=== PATIENT | male | born 1955 | race Caucasian/White ===

== ENCOUNTER 2024-11-30 11:08 | Emergency (ER) | payer MEDICARE ==
--- NOTE | 2024-11-30 11:30 | ED ---
Weakness HPI - General Chief complaint: Weakness Stated complaint: general weakness Time Seen by Provider: 11/30/24 11:27 Source: patient, EMS, RN notes reviewed, old records reviewed Mode of arrival: EMS Limitations: no limitations - History of Present Illness Initial comments: This is a 68-year-old male to the ER for evaluation of weakness today. Patient states he had some difficulty getting off the floor from his chair which is usually not a problem for him. His called the ambulance due to this weakness. Patient states his weakness improved during ambulance transport, patient has no medical history takes no medications and currently is without complaint MD Complaint: generalized weakness, lack of energy, difficulty walking -: hour(s) Location: generalized Severity: mild Consistency: now resolved Improves with: none Worsens with: none Context: history of similar Associated Symptoms: denies other symptoms - Related Data Home Medications Medication Instructions Recorded Confirmed No Known Home Medications 11/30/24 11/30/24 Allergies Allergy/AdvReac Type Severity Reaction Status Date / Time No Known Allergies Allergy Verified 11/30/24 12:32 Review of Systems ROS Statement: Those systems with pertinent positive or pertinent negative responses have been documented in the HPI. ROS Other: All systems not noted in ROS Statement are negative. Past Medical History Past Medical History: No Reported History Past Surgical History: No Surgical Hx Reported Past Psychological History: No Psychological Hx Reported Smoking Status: Former smoker Past Alcohol Use History: Daily Past Drug Use History: None Reported General Exam - General Exam Comments Initial Comments: No focal neurological deficit Limitations: no limitations General appearance: alert, in no apparent distress Head exam: Present: atraumatic, normocephalic, normal inspection Eye exam: Present: normal appearance, PERRL, EOMI. Absent: scleral icterus, conjunctival injection, periorbital swelling ENT exam: Present: normal exam, mucous membranes moist Neck exam: Present: normal inspection. Absent: tenderness, meningismus, lymphadenopathy Respiratory exam: Present: normal lung sounds bilaterally. Absent: respiratory distress, wheezes, rales, rhonchi, stridor Cardiovascular Exam: Present: regular rate, normal rhythm, normal heart sounds. Absent: systolic murmur, diastolic murmur, rubs, gallop, clicks GI/Abdominal exam: Present: soft, normal bowel sounds. Absent: distended, tenderness, guarding, rebound, rigid Extremities exam: Present: normal inspection, full ROM, normal capillary refill. Absent: tenderness, pedal edema, joint swelling, calf tenderness Back exam: Present: normal inspection Neurological exam: Present: alert, oriented X3, CN II-XII intact Psychiatric exam: Present: normal affect, normal mood Skin exam: Present: warm, dry, intact, normal color. Absent: rash Course Vital Signs 11/30/24 11/30/24 11:11 11:36 Temperature 96.5 F L Pulse Rate 91 Pulse Rate [ 80 Bilateral] Respiratory 20 Rate Blood Pressure 170/69 O2 Sat by Pulse 71 L Oximetry - Reevaluation(s) Reevaluation #1: 11/30/24 12:43 Medical records reviewed Reevaluation #2: 11/30/24 12:44 Patient symptoms are improved Initial pulse ox was low but patient has no shortness of breath and is not requiring supplemental O2 99% on room air Patient is able to ambulate without difficulty Reevaluation #3: 11/30/24 12:44 Patient informed of results questions answered Reevaluation #4: Was pt. sent in by a medical professional or institution (, PA, OCULARIST, urgent care, hospital, or senior care...) When possible be specific @ -no Did you speak to anyone other than the patient for history (EMS, parent, family, police, friend...)? What history was obtained from this source @ -no Did you review nursing and triage notes (agree or disagree)? Why? @ -agree Are old charts reviewed (outside hosp., previous admission, EMS record, old EKG, old radiological studies, urgent care reports/EKG's, senior care records)? Report findings @ -yes Differential Diagnosis (chest pain, altered mental status, abdominal pain women, abdominal pain men, vaginal bleeding, weakness, fever, dyspnea, syncope, headache, dizziness, GI bleed, back pain, seizure, CVA, palpatations, mental health, musculoskeletal)? @ -prior EKG interpreted by me (3pts min.). @ -yes X-rays interpreted by me (1pt min.). @ -yes negative for acute disease CT interpreted by me (1pt min.). @ -no U/S interpreted by me (1pt. min.). @ -no What testing was considered but not performed or refused? (CT, X-rays, U/S, labs)? Why? @ -none What meds were considered but not given or refused? Why? @ -none Did you discuss the management of the patient with other professionals (professionals i.e. , PA, OCULARIST, lab, RT, psych nurse, social services director, renal nurse, teacher, sba business development officer, oil field caser)? Give summary @ -no Was smoking cessation discussed for >3mins.? @ -no Was critical care preformed (if so, how long)? @ -no Were there social determinants of health that impacted care today? How? (Homelessness, low income, unemployed, alcoholism, drug addiction, tr ansportation, low edu. Level, literacy, decrease access to med. care, care home, rehab)? @ -none Was there de-escalation of care discussed even if they declined (Discuss DNR or withdrawal of care, Hospice)? DNR status @ -no What co-morbidities impacted this encounter? (DM, HTN, Smoking, COPD, CAD, Canc er, CVA, ARF, Chemo, Hep., AIDS, mental health diagnosis, sleep apnea, morbid obesity)? @ -none Was patient admitted / discharged? Hospital course, mention meds given and route, prescriptions, significant lab abnormalities, going to OR and other pertinent info. @ - Undiagnosed new problem with uncertain prognosis? @ -no Drug Therapy requiring intensive monitoring for toxicity (Heparin, Nitro, Insulin, Cardizem)? @ -no Were any procedures done? @ -no Diagnosis/symptom? @ - Acute, or Chronic, or Acute on Chronic? @ -Acute Uncomplicated (without systemic symptoms) or Complicated (systemic symptoms)? @ -Complicated Side effects of treatment? @ -no Exacerbation, Progression, or Severe Exacerbation? @ -exacerbation Poses a threat to life or bodily function? How? (Chest pain, USA, ME, pneumonia, PE, COPD, DKA, ARF, appy, cholecystitis, CVA, Diverticulitis, Homicidal, Suicidal, threat to staff... and all critical care pts) @ -yes Reevaluation #5: Differential Weakness: Hypoglycemia, shock, sepsis, hyponatremia, anemia, infection, ME, ETOH, adverse medicine reaction, overdose, stroke, this is not meant to be an all-inclusive list. EKG Findings - EKG Comments: EKG Findings:: EKG is sinus 74 CO 151 QRS 85 QTc 377 - EKG Results: EKG: interpreted by BONY Medical Decision Making - Medical Decision Making 68 male to the ER for evaluation of dizziness weakness, patient does have history of alcohol use, no other medical history takes no medications patient's weakness has resolved here in the ER he feels well able to ambulate without difficulty electrolytes are normal and patient can be discharged home - Lab Data Result diagrams: 11/30/24 12:01 11/30/24 12:01 Lab Results 11/30/24 11/30/24 11/30/24 Range/Units 12:01 12:01 12:01 WBC 14.2 H (3.8-10.6) k/uL RBC 4.69 (4.30-5.90) m/uL Hgb 12.8 L (13.0-17.5) gm/dL Hct 41.3 (39.0-53.0) % MCV 88.0 (80.0-100.0) fL MCH 27.3 (25.0-35.0) pg MCHC 31.0 (31.0-37.0) g/dL RDW 13.6 (11.5-15.5) % Plt Count 356 (150-450) k/uL MPV 7.1 Neutrophils % 86 % Lymphocytes % 6 % Monocytes % 5 % Eosinophils % 2 % Basophils % 0 % Neutrophils # 12.3 H (1.3-7.7) k/uL Lymphocytes # 0.9 L (1.0-4.8) k/uL Monocytes # 0.7 (0-1.0) k/uL Eosinophils # 0.3 (0-0.7) k/uL Basophils # 0.1 (0-0.2) k/uL Sodium 133 L (137-145) mmol/L Potassium 4.9 (3.5-5.1) mmol/L Chloride 95 L (98-107) mmol/L Carbon Dioxide 25 (22-30) mmol/L Anion Gap 13 mmol/L BUN 13 (9-20) mg/dL Creatinine 0.69 (0.66-1.25) mg/dL Est GFR (CKD-EPI)AfAm >90 (>60 ml/min/1.73 sqM) Est GFR (CKD-EPI)NonAf >90 (>60 ml/min/1.73 sqM) Glucose 193 H (74-99) mg/dL Plasma Lactic Acid Nicola 3.7 H* (0.7-2.0) mmol/L Calcium 9.7 (8.4-10.2) mg/dL Phosphorus 3.6 (2.5-4.5) mg/dL Magnesium 2.3 (1.6-2.3) mg/dL Total Bilirubin 0.4 (0.2-1.3) mg/dL AST 19 (17-59) U/L ALT 22 (4-49) U/L Alkaline Phosphatase 90 (38-126) U/L Troponin I (0.000-0.034) ng/mL NT-Pro-B Natriuret Pep 110 pg/mL Total Protein 6.8 (6.3-8.2) g/dL Albumin 4.0 (3.5-5.0) g/dL Serum Alcohol <10 mg/dL 11/30/24 Range/Units 12:01 WBC (3.8-10.6) k/uL RBC (4.30-5.90) m/uL Hgb (13.0-17.5) gm/dL Hct (39.0-53.0) % MCV (80.0-100.0) fL MCH (25.0-35.0) pg MCHC (31.0-37.0) g/dL RDW (11.5-15.5) % Plt Count (150-450) k/uL MPV Neutrophils % % Lymphocytes % % Monocytes % % Eosinophils % % Basophils % % Neutrophils # (1.3-7.7) k/uL Lymphocytes # (1.0-4.8) k/uL Monocytes # (0-1.0) k/uL Eosinophils # (0-0.7) k/uL Basophils # (0-0.2) k/uL Sodium (137-145) mmol/L Potassium (3.5-5.1) mmol/L Chloride (98-107) mmol/L Carbon Dioxide (22-30) mmol/L Anion Gap mmol/L BUN (9-20) mg/dL Creatinine (0.66-1.25) mg/dL Est GFR (CKD-EPI)AfAm (>60 ml/min/1.73 sqM) Est GFR (CKD-EPI)NonAf (>60 ml/min/1.73 sqM) Glucose (74-99) mg/dL Plasma Lactic Acid Nicola (0.7-2.0) mmol/L Calcium (8.4-10.2) mg/dL Phosphorus (2.5-4.5) mg/dL Magnesium (1.6-2.3) mg/dL Total Bilirubin (0.2-1.3) mg/dL AST (17-59) U/L ALT (4-49) U/L Alkaline Phosphatase (38-126) U/L Troponin I <0.012 (0.000-0.034) ng/mL NT-Pro-B Natriuret Pep pg/mL Total Protein (6.3-8.2) g/dL Albumin (3.5-5.0) g/dL Serum Alcohol mg/dL Disposition Clinical Impression: Weakness Disposition: HOME SELF-CARE Condition: Good Instructions (If sedation given, give patient instructions): Weakness (ED) Is patient prescribed a controlled substance at d/c from ED?: No Referrals: None,Stated [Primary Care Provider] - 1-2 days Time of Disposition: 12:45
[2024-11-30 12:15] LABS: Basophils # (A) 0.1 k/uL (0-0.2); Basophils % (A) 0 %; Eosinophils # (A) 0.3 k/uL (0-0.7); Eosinophils % (A) 2 %; HCT 41.3 % (39.0-53.0); HGB 12.8 gm/dL (13.0-17.5); Lymphocytes # (A) 0.9 k/uL (1.0-4.8); Lymphocytes % (A) 6 %; MCH 27.3 pg (25.0-35.0); Mean Platelet Volume 7.1; Monocytes # (A) 0.7 k/uL (0-1.0); Monocytes % (A) 5 %; Neutrophils # (A) 12.3 k/uL (1.3-7.7); Neutrophils % (A) 86 %; Platelet Count 356 k/uL (150-450); RBC 4.69 m/uL (4.30-5.90); RDW 13.6 % (11.5-15.5); WBC 14.2 k/uL (3.8-10.6)
[2024-11-30 12:24] LABS: ALT 22 U/L (4-49); AST 19 U/L (17-59); African American GFR (CKD) >90 (>60 ml/min/1.73 sqM); Alcohol <10 mg/dL; Alkaline Phosphatase 90 U/L (38-126); Anion Gap 13 mmol/L; Blood Urea Nitrogen 13 mg/dL (9-20); Calcium 9.7 mg/dL (8.4-10.2); Carbon Dioxide 25 mmol/L (22-30); Chloride 95 mmol/L (98-107); Glucose 193 mg/dL (74-99); Magnesium 2.3 mg/dL (1.6-2.3); Non-African American GFR(CKD) >90 (>60 ml/min/1.73 sqM); Phosphorus 3.6 mg/dL (2.5-4.5); Potassium 4.9 mmol/L (3.5-5.1); Sodium 133 mmol/L (137-145); Total Bilirubin 0.4 mg/dL (0.2-1.3); Total Protein 6.8 g/dL (6.3-8.2)
[2024-11-30 12:32] LABS: NT-Pro-B-Type Natriuretic Pept 110 pg/mL
[2024-11-30] MEDS: LORazepam 2 MG/ML INJ IV STA (12:43)
[2024-11-30] MEDS: SODIUM CHLORIDE 0.9% 1,000 ML IV STA ×2 (12:47→13:15)
[2024-11-30 12:52] LABS: Partial Thromboplastin Time 20.1 sec (22.0-30.0)
[2024-11-30 14:30] VITALS: BP 170/84; PULSE 68; RESP 18; TEMP 97.8
== END 2024-11-30 14:43 | disposition home or self-care (01) ==
LOC: EC 11:08
DX: R53.1 Weakness (principal); Z87.891 Personal history of nicotine dependence
CPT/HCPCS: 36415; 93005; 83880; 80053; 83605; 83735; 84100; 84484; 85025; 85610; 85730; 80320; 99285; 96374; 96361; J2060

== ENCOUNTER → 2024-12-12 | Outpatient (CLI) | payer BC, MEDICARE ==
--- NOTE | 2024-12-12 14:41 | US ---
EXAMINATION TYPE: US arterial LE multi level DATE OF EXAM: 12/12/2024 2:25 PM COMPARISONS: None. CLINICAL INDICATION: Male, 68 years old with history of R53.1 WEAKNESS; LE Weakness/Falls TECHNIQUE: Systolic pressures were taken of the upper and lower extremity arteries with ankle-brachia l indices and toe brachial indices calculated bilaterally. History of: Smoker: Yes Hypertension: Yes Diabetic: No Hyperlipidemia: No TIA/CVA: No Previous Vascular Surgery: No CAD: No UT: No Vascular Ulcers: No Claudication: No Gangrene: No FINDINGS: Doppler Waveforms: Right: Monophasic Left: Monophasic Brachial Artery systolic pressure: Right: 172 Left: 170 Posterior Tibial artery systolic pressure: Right: 51 Left: 53 Dorsalis Pedis artery systolic pressure: Right: 55 Left: 50 Toe artery systolic pressure: Right: NA Left: NA Ankle-Brachial Indices: Right: 0.32 Left: 0.31 Toe Brachial Indices: Right: NA Left: NA (Normal > 0.6; Mild 0.35 - 0.59, Moderate 0.12 - 0.34, Severe <0.12) IMPRESSION: DEMI: Right: Severe Arterial Disease <0.5, Recommendation: Refer to vascular specialist Left: Severe Arterial Disease <0.5, Recommendation: Refer to vascular specialist [facility], , 12/12/2024 2:38 PM
== END | disposition home or self-care (01) ==
LOC: RADUSWWP 13:44
PROVIDERS: ATTEND Family Medicine
DX: I77.9 Disorder of arteries and arterioles, unspecified (principal); R53.1 Weakness
CPT/HCPCS: 93923

== ENCOUNTER 2024-12-21 05:13 | Inpatient (IN) | payer MEDICARE ==
[2024-12-21] MEDS: SODIUM CHLORIDE 0.9% 1,000 ML IV ONE (06:23)
[2024-12-21 06:26] LABS: Basophils % (A) 0 %; Eosinophils # (A) 0.5 k/uL (0-0.7); Eosinophils % (A) 4 %; HCT 36.7 % (39.0-53.0); HGB 12.1 gm/dL (13.0-17.5); Lymphocytes # (A) 0.9 k/uL (1.0-4.8); Lymphocytes % (A) 8 %; MCH 27.5 pg (25.0-35.0); MCV 83.4 fL (80.0-100.0); Mean Platelet Volume 7.4; Monocytes # (A) 0.6 k/uL (0-1.0); Monocytes % (A) 6 %; Neutrophils % (A) 81 %; Platelet Count 437 k/uL (150-450); RDW 13.4 % (11.5-15.5); WBC 11.2 k/uL (3.8-10.6)
[2024-12-21 06:32] LABS: ALT 19 U/L (4-49); AST 18 U/L (17-59); African American GFR (CKD) >90 (>60 ml/min/1.73 sqM); Albumin 3.4 g/dL (3.5-5.0); Alcohol <10 mg/dL; Alkaline Phosphatase 71 U/L (38-126); Anion Gap 9 mmol/L; Blood Urea Nitrogen 16 mg/dL (9-20); Calcium 9.2 mg/dL (8.4-10.2); Carbon Dioxide 27 mmol/L (22-30); Chloride 100 mmol/L (98-107); Glucose 116 mg/dL (74-99); Magnesium 2.1 mg/dL (1.6-2.3); Non-African American GFR(CKD) >90 (>60 ml/min/1.73 sqM); Phosphorus 3.6 mg/dL (2.5-4.5); Potassium 4.3 mmol/L (3.5-5.1); Sodium 136 mmol/L (137-145); Total Bilirubin 0.4 mg/dL (0.2-1.3); Total Protein 6.2 g/dL (6.3-8.2)
[2024-12-21 06:57] LABS: Influenza A Not Detected (Not Detectd); Influenza B Not Detected (Not Detectd); RSV Not Detected (Not Detectd)
--- NOTE | 2024-12-21 07:30 | XR ---
EXAMINATION TYPE: XR chest 2V DATE OF EXAM: 12/21/2024 6:59 AM COMPARISON: None CLINICAL INDICATION: Male, 68 years old with history of Weakness TECHNIQUE: XR chest 2V Frontal and lateral views of the chest. FINDINGS: Lungs/Pleura: There is no evidence of pleural effusion, focal consolidation, or pneumothorax. Pulmonary vascularity: Unremarkable. Heart/mediastinum: Cardiomediastinal silhouette is unremarkable. Right perihilar fullness of masslike opacity present which could possibly be the vasculature given patient rotation. Musculoskeletal: No acute osseous pathology. Other findings: Non IMPRESSION: Right perihilar fullness however the exam is rotated which may represent vasculature versus mass, fur ther evaluation with CT chest recommended to exclude underlying mass. [facility], , 12/21/2024 7:28 AM
--- NOTE | 2024-12-21 07:39 | CT ---
EXAMINATION TYPE: CT brain cspine wo con DATE OF EXAM: 12/21/2024 6:59 AM COMPARISON: None. CLINICAL INDICATION: Male, 68 years old with history of pain; frequent falls recently, pain TECHNIQUE: Brain: Multiple axial CT images of the brain were obtained without IV contrast. Cspine: Axial CT images from the skull base to the inferior aspect of T2 we obtained without intraven ous contrast. Coronal and sagittal reformatted images were also reviewed. . CT DLP: 1390.6 mGycm, Automated exposure control for dose reduction was used. FINDINGS: Brain: Extra-axial spaces: No abnormal extra-axial fluid collections. Ventricular system: Within normal limits Cerebral parenchyma: Intra-axial mass in the right frontal lobe with vasogenic edema measuring 25 at 20 mm. Additional focus of vasogenic edema in the r posterior left frontal lobe suggesting another ma ss measuring 11 mm No acute intraparenchymal hemorrhage. The dale-white junction is well differentia glenn. Cerebellum: Unremarkable. Mass effectleftward shift of the falx up to 11 mm. Intracranial vasculature: unremarkable Soft tissues: Normal. Calvarium/osseous structures: No depressed skull fracture. Paranasal sinuses and mastoid air cells: Clear. Visualized orbits: Orbital contents are intact. Cervical spine: Fracture: None. Osseous structures: Unremarkable Vertebral alignment: Within normal limits. Spinal canal/Neural Foramina: No evidence of significant spinal canal narrowing. No evidence for sign ificant neural foraminal stenosis. Neck soft tissues: Prevertebral soft tissues are within normal limits. Other: The airway is patent. The lung apices are clear. IMPRESSION: 1. Intra-axial masses, given signs of mass on chest radiograph findings suggest metastatic disease o r primary lung malignancy. CT chest recommended for confirmation of primary malignancy. There is left dominguez shift subfalcine herniation secondary to vasogenic edema up to 11 mm. 2. No evidence of cervical spine fracture. 3. Mild multilevel degenerative disc disease. Findings communicated to SOCRATES Fernandez on 12/21/2024 7:[address] Noe Jackson. [facility], , 12/21/2024 7:36 AM
[2024-12-21] MEDS: levETIRAcetam IV 500 MG/5 ML VIAL IVP STA (08:17)
[2024-12-21] MEDS: DEXAMETHASONE SOD PHOSPHATE 10 MG/ML 1 ML VIAL IVP STA (08:18)
--- NOTE | 2024-12-21 08:21 | ED ---
Fall HPI - General Chief Complaint: Fall Stated Complaint: Weakness Time Seen by Provider: 12/21/24 05:59 Source: patient, family, EMS, RN notes reviewed Mode of arrival: EMS Limitations: altered mental status, physical limitation - History of Present Illness Initial Comments: This is a 68-year-old male presents emergency department via EMS with complaint of multiple falls. Patient presents after called EMS because he has had multiple falls unable to get him off the floor. Patient unsure if he had a head injury no reports per EMS. Patient reportedly has been having creasing weakness of the last several weeks to months per he has been having left-sided weakness, cognitive impairment. Patient has no complaints himself he denies any headache dizziness chest pain shortness of breath nausea vomiting diarrhea fever chills cough or cold-like symptoms. Patient is a former alcoholic septic in 2 weeks ago no definite withdrawal symptoms. Patient denies any abdominal complaints but he stated that he recently started seeing a primary physician who did some outpatient venous Dopplers skin concerning for peripheral vascular disease and has been referred to vascular surgery because of his leg weakness and falls. - Related Data Home Medications Medication Instructions Recorded Confirmed No Known Home Medications 11/30/24 12/21/24 Allergies Allergy/AdvReac Type Severity Reaction Status Date / Time No Known Allergies Allergy Verified 12/21/24 10:05 Review of Systems ROS Statement: Those systems with pertinent positive or pertinent negative responses have been documented in the HPI. ROS Other: All systems not noted in ROS Statement are negative. Past Medical History Past Medical History: No Reported History Past Surgical History: No Surgical Hx Reported Past Psychological History: No Psychological Hx Reported Smoking Status: Former smoker Past Alcohol Use History: Daily Past Drug Use History: None Reported - Past Family History Father Family Medical History: Cancer (esophageal ) General Exam Limitations: altered mental status, physical limitation General appearance: alert, in no apparent distress Head exam: Present: atraumatic, normocephalic, normal inspection Eye exam: Present: normal appearance, PERRL, EOMI. Absent: scleral icterus, con junctival injection, periorbital swelling ENT exam: Present: normal exam, normal oropharynx, mucous membranes moist, TM's normal bilaterally Neck exam: Present: normal inspection, full ROM. Absent: tenderness, meningismus, lymphadenopathy Respiratory exam: Present: normal lung sounds bilaterally. Absent: respiratory distress, wheezes, rales, rhonchi, stridor Cardiovascular Exam: Present: regular rate, normal rhythm, normal heart sounds. Absent: systolic murmur, diastolic murmur, rubs, gallop, clicks GI/Abdominal exam: Present: soft, normal bowel sounds. Absent: distended, tenderness, guarding, rebound, rigid Neurological exam: Present: alert, CN II-XII intact, other (Left versus right strength weakness). Absent: oriented X3 Psychiatric exam: Present: flat affect Skin exam: Present: warm, dry, intact, normal color. Absent: rash Course Vital Signs 12/21/24 12/21/24 12/21/24 05:14 08:50 10:13 Temperature 98.2 F 97.5 F L Pulse Rate 76 70 68 Respiratory 18 18 18 Rate Blood Pressure 161/68 151/81 173/79 O2 Sat by Pulse 97 93 L 98 Oximetry Medical Decision Making - Medical Decision Making Was pt. sent in by a medical professional or institution (, PA, [employer] D[employer]ION[employer] MAP MODELER, urgent care, hospital, or usp...) When possible be specific @ -No Did you speak to anyone other than the patient for history (EMS, parent, family, police, friend...)? What history was obtained from this source @ - providing history and complaint Did you review nursing and triage notes (agree or disagree)? Why? @ -I reviewed and agree with nursing and triage notes Were old charts reviewed (outside hosp., previous admission, EMS record, old EKG, old radiological studies, urgent care reports/EKG's, usp records)? Report findings @ -No old charts were reviewed Differential Diagnosis (chest pain, altered mental status, abdominal pain women, abdominal pain men, vaginal bleeding, weakness, fever, dyspnea, syncope, headache, dizziness, GI bleed, back pain, seizure, CVA, palpatations, mental health, musculoskeletal)? @ -Differential Weakness: Hypoglycemia, shock, sepsis, hyponatremia, anemia, infection, [place], ETOH, adverse medicine reaction, overdose, stroke, this is not meant to be an all-inclusive list. EKG interpreted by me (3pts min.). @ -As above X-rays interpreted by me (1pt min.). @ -[Chest x-ray shows right large perihilar mass CT interpreted by me (1pt min.). @ -CT brain showing vasogenic edema, mass noted with some shifting noted U/S interpreted by me (1pt. min.). @ -None done What testing was considered but not performed or refused? (CT, X-rays, U/S, l abs)? Why? @ -None What meds were considered but not given or refused? Why? @ -None Did you discuss the management of the patient with other professionals (professionals i.e. , PA, [employer] D[employer] MODELER, lab, RT, psych nurse, social organization professor, web ui designer, teacher, diplomatic officer, case assembler)? Give summary @ -Discussed admission with Dr. Gonzales and oncology evaluation Was smoking cessation discussed for >3mins.? @ -No Was critical care preformed (if so, how long)? @ -No Were there social determinants of health that impacted care today? How? (Homelessness, low income, unemployed, alcoholism, drug addiction, transpor tation, low edu. Level, literacy, decrease access to med. care, penitentiary, rehab)? @ -No Was there de-escalation of care discussed even if they declined (Discuss DNR or withdrawal of care, Hospice)? DNR status @ -No What co-morbidities impacted this encounter? (DM, HTN, Smoking, COPD, CAD, Cancer, CVA, ARF, Chemo, Hep., AIDS, mental health diagnosis, sleep apnea, morbid obesity)? @ -None Was patient admitted / discharged? Hospital course, mention meds given and route, prescriptions, significant lab abnormalities, going to OR and other pertinent info. @ -[Admitted the patient is found to have increasing metastatic disease, multiple falls, weakness left-sided deficits and cognitive impairment. Patient symptoms been progressing over the last several weeks to months. Patient is unable to care for himself at home. Patient be admitted for oncology evaluation patient's making decisions with patient states that he is currently full code but she does not want any surgical intervention. Undiagnosed new problem with uncertain prognosis? @ -Yes Drug Therapy requiring intensive monitoring for toxicity (Heparin, Nitro, Insulin, Cardizem)? @ -No Were any procedures done? @ -No Diagnosis/symptom? @ -Metastatic disease, weakness, brain mass, lung mass, w multiple falls Acute, or Chronic, or Acute on Chronic? @ -[Acute Uncomplicated (without systemic symptoms) or Complicated (systemic symptoms)? @ -Complicated Side effects of treatment? @ -No Exacerbation, Progression, or Severe Exacerbation? @ -No Poses a threat to life or bodily function? How? (Chest pain, [place], [place], pneumonia, PE, COPD, DKA, ARF, appy, cholecystitis, CVA, Diverticulitis, Homicidal, Suicidal, threat to staff... and all critical care pts) @ Yes cancer - Lab Data Result diagrams: 12/21/24 06:12 12/21/24 06:12 Lab Results 12/21/24 12/21/24 12/21/24 Range/Units 06:12 06:12 06:12 WBC 11.2 H (3.8-10.6) k/uL RBC 4.40 (4.30-5.90) m/uL Hgb 12.1 L (13.0-17.5) gm/dL Hct 36.7 L (39.0-53.0) % MCV 83.4 (80.0-100.0) fL MCH 27.5 (25.0-35.0) pg MCHC 33.0 (31.0-37.0) g/dL RDW 13.4 (11.5-15.5) % Plt Count 437 (150-450) k/uL MPV 7.4 Neutrophils % 81 % Lymphocytes % 8 % Monocytes % 6 % Eosinophils % 4 % Basophils % 0 % Neutrophils # 9.0 H (1.3-7.7) k/uL Lymphocytes # 0.9 L (1.0-4.8) k/uL Monocytes # 0.6 (0-1.0) k/uL Eosinophils # 0.5 (0-0.7) k/uL Basophils # 0.0 (0-0.2) k/uL Sodium 136 L (137-145) mmol/L Potassium 4.3 (3.5-5.1) mmol/L Chloride 100 (98-107) mmol/L Carbon Dioxide 27 (22-30) mmol/L Anion Gap 9 mmol/L BUN 16 (9-20) mg/dL Creatinine 0.53 L (0.66-1.25) mg/dL Est GFR (CKD-EPI)AfAm >90 (>60 ml/min/1.73 sqM) Est GFR (CKD-EPI)NonAf >90 (>60 ml/min/1.73 sqM) Glucose 116 H (74-99) mg/dL Plasma Lactic Acid Nicola 1.7 (0.7-2.0) mmol/L Calcium 9.2 (8.4-10.2) mg/dL Phosphorus 3.6 (2.5-4.5) mg/dL Magnesium 2.1 (1.6-2.3) mg/dL Total Bilirubin 0.4 (0.2-1.3) mg/dL AST 18 (17-59) U/L ALT 19 (4-49) U/L Alkaline Phosphatase 71 (38-126) U/L Troponin I (0.000-0.034) ng/mL Total Protein 6.2 L (6.3-8.2) g/dL Albumin 3.4 L (3.5-5.0) g/dL Serum Alcohol <10 mg/dL Influenza Type A (PCR) (Not Detectd) Influenza Type B (PCR) (Not Detectd) RSV (PCR) (Not Detectd) SARS-CoV-2 (PCR) (Not Detectd) 12/21/24 12/21/24 Range/Units 06:12 06:15 WBC (3.8-10.6) k/uL RBC (4.30-5.90) m/uL Hgb (13.0-17.5) gm/dL Hct (39.0-53.0) % MCV (80.0-100.0) fL MCH (25.0-35.0) pg MCHC (31.0-37.0) g/dL RDW (11.5-15.5) % Plt Count (150-450) k/uL MPV Neutrophils % % Lymphocytes % % Monocytes % % Eosinophils % % Basophils % % Neutrophils # (1.3-7.7) k/uL Lymphocytes # (1.0-4.8) k/uL Monocytes # (0-1.0) k/uL Eosinophils # (0-0.7) k/uL Basophils # (0-0.2) k/uL Sodium (137-145) mmol/L Potassium (3.5-5.1) mmol/L Chloride (98-107) mmol/L Carbon Dioxide (22-30) mmol/L Anion Gap mmol/L BUN (9-20) mg/dL Creatinine (0.66-1.25) mg/dL Est GFR (CKD-EPI)AfAm (>60 ml/min/1.73 sqM) Est GFR (CKD-EPI)NonAf (>60 ml/min/1.73 sqM) Glucose (74-99) mg/dL Plasma Lactic Acid Nicola (0.7-2.0) mmol/L Calcium (8.4-10.2) mg/dL Phosphorus (2.5-4.5) mg/dL Magnesium (1.6-2.3) mg/dL Total Bilirubin (0.2-1.3) mg/dL AST (17-59) U/L ALT (4-49) U/L Alkaline Phosphatase (38-126) U/L Troponin I <0.012 (0.000-0.034) ng/mL Total Protein (6.3-8.2) g/dL Albumin (3.5-5.0) g/dL Serum Alcohol mg/dL Influenza Type A (PCR) Not Detected (Not Detectd) Influenza Type B (PCR) Not Detected (Not Detectd) RSV (PCR) Not Detected (Not Detectd) SARS-CoV-2 (PCR) Not Detected (Not Detectd) - EKG Data -: EKG Interpreted by Me EKG Comments: EKG performed at 5: 33 sinus rhythm rate of 67 MS 152 QRS 86 QT/QTc 369/384 Disposition Clinical Impression: Weakness, Multiple falls, Metastatic cancer, Brain mass, Lung mass Disposition: ADMITTED IP TO THIS [facility] Condition: Serious Time of Disposition: 09:23
[2024-12-21] MEDS ORDERED: NALOXONE 0.4 MG/ML 1 ML VIAL IV PRN (09:23)
[2024-12-21] MEDS ORDERED: ONDANSETRON 4 MG/2 ML VIAL IVP PRN (09:23)
--- NOTE | 2024-12-21 11:20 | P.HPIM ---
History of Present Illness H&P Date: 12/21/24 History of Presenting Illness: Patient is a pleasant 68-year-old male with a past medical history of alcohol abuse and nicotine dependence. He presented to the emergency department with a chief complaint of recurrent falls at home. Per report from ED provider patient has had recurrent falls over the last several weeks to months accompanied by left-sided weakness and intermittent confusion. He underwent recent admission at [facility] secondary to alcohol withdrawal symptoms and has reportedly not drink since. Upon arrival to our facility, patient underwent evaluation in the emergency department. Vital signs upon arrival show blood pressure 161/68, heart rate 76, respiratory rate 18, temp 98.2 F, and SpO2 of 97% on room air. EKG completed showing normal sinus rhythm at 67 bpm with no significant T wave or ST abnormality showing no signs of acute ischemia upon personal review and interpretation. CT head and cervical spine showing intra-axial masses suggestive of metastatic disease with a leftward shift subfalcine herniation secondary to vasogenic edema up to 11 mm and no evidence of cervical spine fracture. Chest x-ray showing right perihilar fullness concerning for mass. ED provider had long discussion with patient's , she was adamant she did not want patient transferred and did not evaluation by neurosurgeon. She states she will not consent to any surgical intervention but at this time wants her to remain a full code with medical management and evaluation by oncologist. Patient seen and fully evaluated in room 16 in the emergency department. He currently is alert to person, place, and time and slightly confused to situation. Patient currently denies having any complaints including headache, lightheadedness, dizziness, chest pain, palpitations, shortness of breath, or any other complaints. Patient does have noted slight left-sided weakness and right pupil is slightly larger than left unknown baseline and both reactive to light. Extraocular movements intact throughout right peripheral thomas but patient did not follow any movements through left peripheral thomas. Review of systems: Pertinent positives and negatives as discussed in HPI, a complete review of systems was performed and all other systems are negative. Physical exam: Vital signs reviewed and stable. General: Nontoxic, no distress and appears stated age. Derm: Skin warm and dry, normal coloration for ethnicity. Head: Atraumatic, normocephalic and symmetric. Eyes: no lid lag, and anicteric sclera Mouth: no lip lesions, mucus membranes moist Cardiovascular: regular rate and rhythm with normal S1S2, no murmur, positive posterior tibial pulses bilaterally, and cap refill < 2 seconds. Lungs: Respirations even, regular, and unlabored on room air. Lungs CTA bilaterally, no rhonchi, no rales, no wheezing, and no accessory muscle usage. Abdominal: soft, nontender to palpation, no guarding, no appreciable organomegaly Ext: No gross muscle atrophy, no edema, no contractures. Patient with noted weakness of left upper extremity with 3 out of 5 strength compared to 5 out of 5 strength on right and positive for left arm drift. Neuro: Speech clear, face symmetrical. GCS 14. Patient does have noted slight left-sided weakness and right pupil is slightly larger than left unknown baseline and both reactive to light. Extraocular movements intact throughout right peripheral thomas but patient did not follow any movements through left peripheral thomas Psych: Alert and oriented to person, place, time, and situation. Appropriate and pleasant affect. Assessment and Plan of Care: Vasogenic edema, newly diagnosed metastatic lesions in brain with a leftward shift subfalcine herniation Lung mass Encephalopathy, secondary to above Longstanding history of alcohol abuse Nicotine dependence -Patient given Decadron 10 mg IVP x 1 dose in the emergency department and placed on Decadron 4 mg IVP every 6 hours. -Patient provided with loading dose of Keppra 1000 mg IVP and placed on Keppra 500 mg every 12 hours. -Seizure precautions and fall precautions in place. -Patient to remain on continuous telemetry monitoring. -Consult placed to hematology/oncology and discussed case in depth with oncology BROOMCORN SORTER stating no need for transfer at this time recommending evaluation by radiation oncologist and placing additional orders at this time. Data and imaging reviewed -As stated above in HPI The patient is admitted with an anticipated greater than 2 midnight stay for evaluation of vasogenic edema with a leftward shift subfalcine herniation CODE STATUS: Full code DVT prophylaxis: SCDs Anticipated discharge date: Pending clnical course Anticipated discharge place: Pending clnical course Patient was seen independently by Nurse Practitioner. This document was prepared using Miroi dictation software. Please allow for errors in cutlery grinder while rare they do occur. Mikey Brown BROOMCORN SORTER rendered care for this patient independently, reviewed the findings and plan as documented in the note above and agree with plan. I did not physically speak with or examine the patient on this date. Past Medical History Past Medical History: No Reported History Past Surgical History: No Surgical Hx Reported Past Psychological History: No Psychological Hx Reported Smoking Status: Former smoker Past Alcohol Use History: Daily Past Drug Use History: None Reported - Past Family History Father Family Medical History: Cancer (esophageal ) Medications and Allergies Home Medications Medication Instructions Recorded Confirmed Type No Known Home Medications 11/30/24 12/21/24 History Allergies Allergy/AdvReac Type Severity Reaction Status Date / Time No Known Allergies Allergy Verified 12/21/24 10:05 Physical Exam Vitals: Vital Signs Temp Pulse Resp BP Pulse Ox 12/21/24 11:04 70 18 168/72 98 12/21/24 10:13 68 18 173/79 98 12/21/24 08:50 97.5 F L 70 18 151/81 93 L 12/21/24 05:14 98.2 F 76 18 161/68 97 Intake and Output 12/20/24 12/21/24 12/21/24 22:59 06:59 14:59 Other: Weight 65.771 kg Results CBC & Chem 7: 12/21/24 06:12 12/21/24 06:12 Labs: Abnormal Lab Results - Last 24 Hours (Table) 12/21/24 12/21/24 Range/Units 06:12 06:12 WBC 11.2 H (3.8-10.6) k/uL Hgb 12.1 L (13.0-17.5) gm/dL Hct 36.7 L (39.0-53.0) % Neutrophils # 9.0 H (1.3-7.7) k/uL Lymphocytes # 0.9 L (1.0-4.8) k/uL Sodium 136 L (137-145) mmol/L Creatinine 0.53 L (0.66-1.25) mg/dL Glucose 116 H (74-99) mg/dL Total Protein 6.2 L (6.3-8.2) g/dL Albumin 3.4 L (3.5-5.0) g/dL
[2024-12-21] MEDS: DEXAMETHASONE SOD PHOSPHATE 4 MG/ML 1 ML VIAL IVP SCH (11:46)
[2024-12-21] MEDS: PANTOPRAZOLE 40 MG/10 ML VIAL IVP SCH (13:17)
[2024-12-21] MEDS: IOPAMIDOL CONTRAST (ORAL USE) VIAL PO PRN (13:40)
--- NOTE | 2024-12-21 14:07 | P.CONS ---
History of Present Illness - Reason for Consult Consult date: 12/21/24 brain lesions Requesting physician: Mikey Brown - Chief Complaint AMS - History of Present Illness Mr. Borjas is a 68-year-old male that we have been asked to see urgently because of findings on CT scan of the brain. Patient was brought to the hospital because of progressive cognitive changes. When speaking with his patient has been having symptoms for about 1 year. He has a shuffling gait, now requires a walker, cognitively, she feels he is "not there", "staring right through me". He is not following commands, he is doing things that he normally would not do-patient's gave several examples of what she would have anticipated he would do, as he has done the same thing for many many years, he was not doing. She states that this has been progressively getting worse. She first noted last summer that the patient "always exhausted". She reports that he was always busy prior, building garage and remodeling their home. Patient is a daily EtOH consumer, December 10 though, he stopped. Patient was a 1 pack/day smoker for 30+ years, quit after COVID. He currently continues to smoke marijuana. Patient has never seen a physician in his life. He has had no age- related cancer screenings. The believes that she has any has had some weight loss, she thinks he usually weighs in the 160 pound range. She has noticed a cough with a "rattle in the lungs". Patient did answer questions appropriately, was able to follow commands, he was easily distracted and will begin fidgeting with what ever was in his hands. He denied any headaches, blurry vision, double vision, pain. No difficulty swallowing, chest pain, abdominal pain or cramping, no acute changes in bowel or bladder habits, no swelling in the legs, lymphadenopathy. CT of the head and cervical spine without contrast is reporting intra-axial mass in the right frontal lobe with vasogenic edema measuring 25 mm. Additional focus of vasogenic edema in the right posterior left frontal lobe suggesting another mass measuring 11 mm. No acute intraparenchymal hemorrhage. Leftward shift subfalcine herniation secondary to vasogenic edema up to 11 mm. Chest x-ray reporting right perihilar fullness, recommending CT to exclude an underlying mass. Vital signs are overall stable, patient is on room air, hypertension is noted, slightly elevated WBC of 11.2, mostly neutrophilia, ANC is 9, likely 2/2 steroids, otherwise no grossly abnormal laboratory abnormalities Review of Systems 10 point review of systems is negative except as stated in HPI Past Medical History Past Medical History: Coronary Artery Disease (CAD) Additional Past Medical History / Comment(s): X-smoker quit 2019, Patient has been a heavy beer drinker in the past-quit drinking December 10, 2024. History of Any Multi-Drug Resistant Organisms: None Reported Past Surgical History: No Surgical Hx Reported Past Psychological History: No Psychological Hx Reported Smoking Status: Former smoker Past Alcohol Use History: Daily Past Drug Use History: None Reported Additional Drug Use History / Comment(s): Quit smoking in 2019. Quit drinking December 10, 2024-was a heavy beer drinker. - Past Family History Father Family Medical History: Cancer (esophageal ) Medications and Allergies Home Medications Medication Instructions Recorded Confirmed Type No Known Home Medications 11/30/24 12/21/24 History Allergies Allergy/AdvReac Type Severity Reaction Status Date / Time No Known Allergies Allergy Verified 12/21/24 10:05 Physical Exam Vitals: Vital Signs Temp Pulse Pulse Resp BP BP Pulse Ox 12/21/24 11:40 98 F 61 19 152/65 100 12/21/24 11:04 70 18 168/72 98 12/21/24 10:13 68 18 173/79 98 12/21/24 08:50 97.5 F L 70 18 151/81 93 L 12/21/24 05:14 98.2 F 76 18 161/68 97 Intake and Output 12/20/24 12/21/24 12/21/24 22:59 06:59 14:59 Other: Voiding Method Diaper # Voids 1 Weight 65.771 kg 65.771 kg - Constitutional General appearance: cooperative, no acute distress, thin - EENT Eyes: anicteric sclerae, EOMI ENT: hearing grossly normal, normal oropharynx - Neck Neck: no lymphadenopathy - Respiratory Respiratory: bilateral: diminished - Cardiovascular Rhythm: regular Heart sounds: normal: S1, S2 Abnormal Heart Sounds: no systolic murmur, no diastolic murmur, no rub, no S3 Gallop, no S4 Gallop, no click, no other leg Peripheral Edema: bilateral: None - Gastrointestinal General gastrointestinal: no absent bowel sounds, no decreased bowel sounds, no distended, no hepatomegaly, no hyperactive bowel sounds, normal bowel sounds, no organomegaly, no rigid, no scaphoid, soft, no splenomegaly, no tenderness, no umbilical hernia, no ventral hernia - Integumentary left hand swelling, forearm bruising - Neurologic Neurologic: CNII-XII intact (grossly) - Musculoskeletal Musculoskeletal: generalized weakness - Psychiatric Alert, answers questions appropriately, flat affect, fidgets continually, folding items Results CBC & Chem 7: 12/21/24 06:12 12/21/24 06:12 Labs: Abnormal Lab Results - Last 24 Hours (Table) 12/21/24 12/21/24 Range/Units 06:12 06:12 WBC 11.2 H (3.8-10.6) k/uL Hgb 12.1 L (13.0-17.5) gm/dL Hct 36.7 L (39.0-53.0) % Neutrophils # 9.0 H (1.3-7.7) k/uL Lymphocytes # 0.9 L (1.0-4.8) k/uL Sodium 136 L (137-145) mmol/L Creatinine 0.53 L (0.66-1.25) mg/dL Glucose 116 H (74-99) mg/dL Total Protein 6.2 L (6.3-8.2) g/dL Albumin 3.4 L (3.5-5.0) g/dL Chest x-ray: report reviewed CT Scan - head: report reviewed, image reviewed Assessment and Plan (1) Brain mass Current Visit: Yes Status: Acute Priority: High Code(s): G93.89 - OTHER SPECIFIED DISORDERS OF BRAIN SNOMED Code(s): 340507595 Plan: Brain mass with subfalcine herniation of 11 mm, midline shift -Circumstances surrounding presentation is summarized in HPI. Imaging findings summarized in HPI. -10 mg of IV Dex was administered, patient continues on 4 mg every 6 hours, agree with treatment. Will see how pt does over the next 12-24 hours -PPI added -Assessment of the patient finds that he is overall stable, at this time. -Reviewed case with Medical Oncologist and Radiation Oncologist. It is felt that at this time patient is stable enough to continue workup. -Brain imaging was reviewed with Radiation Oncologist. Radiation Oncologist consulted and will see patient today. -MRI of the brain is being ordered to fully assess brain lesions. -CT CAP with contrast ordered to assess for biopsy target lesion. -Concerning findings were reviewed with the patient and his at the bedside. They verbalized understanding that additional workup will be ordered. Transfer to a higher level of care will be initiated, if necessary. -Communicated with IM SALES UTILITY REPRESENTATIVE recommendations at this time. Will continue to update her and give recommendations from a Onc standpoint, as more information becomes available. Time with Patient: Greater than 30
[2024-12-21 14:16] LABS: Appearance,Urine Clear (Clear); Bilirubin,Urine Negative (Negative); Blood,Urine Negative (Negative); Color,Urine Yellow; Glucose,Urine (UA) Negative (Negative); Ketones,Urine Negative (Negative); Leukocyte Esterase,Urine Negative (Negative); Nitrite,Urine Negative (Negative); Protein,Urine Negative (Negative); Specific Gravity,Urine 1.018 (1.001-1.035); Urobilinogen,Urine <2.0 mg/dL (<2.0)
--- NOTE | 2024-12-21 16:23 | MR ---
"MRI brain EXAMINATION TYPE: MR brain wo/w con DATE OF EXAM: 12/21/2024 4:07 PM COMPARISON: None. CLINICAL INDICATION: Male, 68 years old with history of brain lesions, Brain Lesions TECHNIQUE: Multi planar multi sequence imaging of the brain. CONTRAST: Patient received 6.5ml mL intravenous Gadobutrol gadolinium contrast. Pre and post contras t enhanced images are obtained. FINDINGS: There is a partially necrotic solitary mass right frontal lobe measuring 2.6 x 2.3 x 2.2 cm with exte nsive surrounding vasogenic edema. There is midline shift from left to right of approximately 8 mm wi th impending subfalcine herniation. There is dural extension noted. Additional tiny 5 mm lesion high left frontal parietal lobe with a small amount of surrounding vasogenic edema. This lesion is also pa rtially solid and partially cystic. No additional enhancing lesions are seen at this time. The ventricles, basal cisterns and sulci overlying the cerebral convexities are mildly enlarged. There is evidence of mild periventricular white matter ischemic demyelination. Remote deep white matter insults are also noted. No acute edema is seen on diffusion weighted imaging. There is no evidence for midline shift or mass effect. Acute intracranial hemorrhage or extra-axial collection is not evident. No enhancing lesions are seen. The paranasal sinuses and mastoid air cells are well-aerated. IMPRESSION: As noted above there are 2 metastatic lesions seen the largest within the right frontal lobe resultin g in right to left sided shift and impending subfalcine herniation suspected. A [place] critical message alert has been initiated for Milagros Berry~[id number] Lm Greenwood via the [employer] | Critical Results System on 12/21/2024 4:20 PM. This message alert has been sent to D Jamal~[id number] Lm Greenwood via the preferences provided by the clinician for the receipt of R adiology Critical Findings. Message ID [id number]. [facility], , 12/21/2024 4:21 PM"
--- NOTE | 2024-12-21 16:46 | CT ---
EXAMINATION TYPE: CT ChestAbdPelvis w con CT DLP: 673.2 mGycm, Automated exposure control for dose reduction was used. DATE OF EXAM: 12/21/2024 4:23 PM COMPARISON: Chest radiograph 12/21/2024, CT brain CT scan 12/21/2024 CLINICAL INDICATION:Male, 68 years old with history of brain lesions; PHH, possible mets Technique: Multiple axial images of the chest, abdomen, and pelvis were obtained following the intrav enous administration of 100 mL Isovue-300. Oral contrast was administered. Two-dimensional coronal an d sagittal reconstructions were obtained. Findings: CHEST: LUNGS/ PLEURA: Biapical pleural-parenchymal scarring. Trace right pleural effusion. No pneumothorax. Large right lower lobe masslike consolidation measuring 9.8 x 7.1 cm with central low density measur ing up to 5 cm. This extends into the right pulmonary hilum. Anterior left lower lobe 4.4 mm pulmonar y nodule (series 4, image 39). AIRWAY: There is abrupt cut off of the right lower lobe bronchus due to surrounding mass. HEART: Size within normal limits.No pericardial effusion. Moderate coronary artery calcifications pre sent. MEDIASTINUM: Pretracheal lymph node measuring up to 1.5 cm short axis with subcarinal confluent adeno cathy with the right hilar and right lower lobe mass measuring up to 1.7 cm in short axis. Right albaro r lymph node which is confluent with the right lower lobe mass measuring up to 2.7 cm. VASCULATURE: No aortic aneurysm. Mild atherosclerotic calcification of the aorta and its branches. N o visualized pulmonary embolism. MUSCULOSKELETAL: No acute osseous abnormalities. No aggressive osseous lesion. Multilevel degenerativ e disc disease of the lower thoracic spine. SOFT TISSUES/LYMPH NODES: Unremarkable. LOWER NECK: No significant findings. ABDOMEN: ABDOMEN LIVER: Unremarkable GALLBLADDER AND BILE DUCTS: Unremarkable. PANCREAS: Unremarkable. SPLEEN: Unremarkable. ADRENAL GLANDS: Unremarkable left adrenal gland. No nodularity of the right adrenal gland with a smal l calcification demonstrated. KIDNEYS AND URETERS: No evidence of hydronephrosis. Couple nonobstructive right renal calculi measuri ng up to 3 mm. Nonobstructive left renal superior pole calculus measuring up to 3 mm. Contrast is dem onstrated within both collecting systems on the delayed phase. The kidneys enhance symmetrically. PELVIS BLADDER: Unremarkable REPRODUCTIVE: Unremarkable. ABDOMEN & PELVIS STOMACH AND BOWEL: Stomach and duodenum are unremarkable. Enteric contrast reaches the proximal trans verse colon. No focal bowel wall thickening or surrounding inflammatory changes. Mild amount of stool is present throughout the colon. No evidence of bowel obstruction. PERITONEUM: No evidence of pneumoperitoneum or free fluid. VASCULATURE: Moderate atherosclerotic calcifications are present throughout the abdominal aorta and i ts branches. No abdominal aortic aneurysm. There is mural thrombus within the distal common aorta wit h lack of contrast-enhancement just after the origin of the STAN which appears patent. The celiac axis and SMA and bilateral renal arteries are patent. There is lack of contrast identified within the aranza ateral common iliac arteries with distal reconstitution of the right internal/external iliac arteries . There is reconstitution of the left internal iliac artery distally. No contrast is definitively claudy ntified within the left external iliac artery until its distal aspect when it becomes the common femo ral artery. The visualized portions of the bilateral superficial femoral and deep femoral arteries ap pear patent. Pelvic phleboliths. MUSCULOSKELETAL: No acute osseous abnormalities. No aggressive osseous lesion. Degenerative changes o f the left SI joint with anterior bridging. Multilevel degenerative disc disease of the lumbar spine. LYMPH NODES: No evidence for lymphadenopathy. SOFT TISSUE/ABDOMINAL WALL: Unremarkable IMPRESSION: 1. Right lower lobe masslike consolidation with central low attenuation most consistent of primary rico ng malignancy with surrounding atelectasis. There is confluent extension into the right hilum with ab rupt cut off of the right lower lobe bronchus. Additional mediastinal metastatic adenopathy. 2. Trace right pleural effusion. 3. Findings of aorta iliac occlusive disease with complete occlusion of the distal aorta just after t he origin of the STAN due to mural thrombus. There is nonenhancement of the bilateral common iliac art eries and left external iliac artery. There is distal reconstitution bilaterally. 4. Nonobstructive bilateral renal calculi. [facility], , 12/21/2024 4:43 PM
[2024-12-21] MEDS: levETIRAcetam 500 MG TAB PO SCH (22:26)
[2024-12-22] MEDS: QUEtiapine 25 MG TAB PO STA (02:20)
--- NOTE | 2024-12-22 10:20 | P.CONS ---
History of Present Illness - Reason for Consult Consult date: 12/21/24 brain mass/edema Requesting physician: Annalee Stinson - Chief Complaint falls, weakness - History of Present Illness The patient is a 68-year-old male with a 36-vdui-lmsi smoking history and a history of alcohol abuse. He presented to the hospital secondary to progressive weakness, falls and alteration of his mental status. He was found on imaging to have a large right frontal mass with extensive vasogenic edema. Additional workup revealed a likely primary cancer involving the right lower lung, now with suspicion for brain metastases. According to the patient's , he has had increased difficulty over the past several months with shuffling gait. Over the past 1 to 2 months he has had notable difficulty with his balance and left-sided weakness. He has had a couple of falls and difficulty getting back up. This prompted the patient to present to the ER on December 21. A CT of the head and spine without contrast revealed a right frontal lobe mass measuring 2.5 cm with marked vasogenic edema. There was a possible second lesion noted in the left posterior frontal area. There was approximately 1 cm midline shift. A subsequent MRI of the brain revealed this partially necrotic right frontal mass to measure 2.6 x 2.2 cm with extensive vasogenic edema. There was 8 mm of midline shift. There was a second small focus measuring 5 mm in the left posterior frontal lobe. A subsequent CT of the chest, abdomen and pelvis on December 21 revealed a large right lower lobe mass measuring 9.8 x 7.1 cm with a central hypodensity. There was enlarged right hilar, subcarinal and pretracheal adenopathy. Of note, the imaging did reveal occlusive aortoiliac disease secondary to thrombus. At this time, the patient reports that he is not having any significant hea daches or nausea. He does still feel his left arm is weak. He was started on high-dose Decadron earlier today. Review of Systems Constitutional: Denies fever Eyes: denies blurred vision Ears, nose, mouth and throat: Denies headache Cardiovascular: Denies claudication Respiratory: Denies cough, Denies dyspnea Gastrointestinal: Denies BRBPR Genitourinary: Denies flank pain Integumentary: Denies rash Neurological: Reports paresthesias, Denies aphasia, Denies confusion Psychiatric: Denies anxiety Past Medical History Past Medical History: No Reported History Additional Past Medical History / Comment(s): X-smoker quit 2019, Patient has been a heavy beer drinker in the past-quit drinking December 10, 2024. History of Any Multi-Drug Resistant Organisms: None Reported Past Surgical History: No Surgical Hx Reported Past Psychological History: No Psychological Hx Reported Smoking Status: Former smoker Past Alcohol Use History: Daily Past Drug Use History: None Reported - Past Family History Father Family Medical History: Cancer (esophageal ) Medications and Allergies Home Medications Medication Instructions Recorded Confirmed Type No Known Home Medications 11/30/24 12/21/24 History Allergies Allergy/AdvReac Type Severity Reaction Status Date / Time No Known Allergies Allergy Verified 12/21/24 10:05 Physical Exam Vitals: Vital Signs Temp Pulse Pulse Resp BP BP Pulse Ox 12/22/24 07:17 96.9 F L 57 L 17 164/66 97 12/22/24 02:00 98.6 F 69 16 165/73 96 12/21/24 20:00 98.5 F 67 16 182/85 93 L 12/21/24 14:00 98.1 F 64 18 169/78 97 12/21/24 11:40 98 F 61 19 152/65 100 12/21/24 11:04 70 18 168/72 98 12/21/24 10:13 68 18 173/79 98 Intake and Output 12/21/24 12/22/24 12/22/24 22:59 06:59 14:59 Intake Total 480 Balance 480 Intake: Oral 480 Other: Voiding Method Diaper # Voids 2 2 - Constitutional General appearance: no acute distress - EENT Eyes: EOMI, PERRLA ENT: hearing grossly normal - Neck Neck: no lymphadenopathy - Respiratory Respiratory: right: diminished, left: CTA - Cardiovascular Rhythm: regular - Gastrointestinal General gastrointestinal: no distended, no tenderness - Integumentary Integumentary: no calor - Neurologic Neurologic: CNII-XII intact - Musculoskeletal Musculoskeletal: left sided weakness (4/5 strenth LUE + LLE) - Psychiatric Psychiatric: A&O x's 3, appropriate affect Results CBC & Chem 7: 12/21/24 06:12 12/21/24 06:12 CT scan - chest: report reviewed, image reviewed CT Scan - head: report reviewed, image reviewed CT scan - pelvis: report reviewed, image reviewed MRI - head: image reviewed Assessment and Plan Assessment: The patient is a 68-year-old male with a 50-ufaw-eaiz smoking history and a history of alcohol abuse. He presented to the hospital secondary to progressive weakness, falls and alteration of his mental status. He was found on imaging to have a large right frontal mass with extensive vasogenic edema. Additional work up revealed a likely primary cancer involving the right lower lung, now with suspicion for brain metastases. Plan: 1. Brain metastases: As detailed above, the patient's clinical picture is highly suspicious for newly diagnosed brain metastases. There is significant vasogenic edema associated with the large right frontal lesion. Continue dexamethasone and see if the patient has clinical improvement. If the patient does not have significant improvement, he may benefit from neurosurgical evaluation for resection of the right frontal lesion. He does not have extensiv e metastatic disease throughout the brain, with only 1 additional 5 mm lesion noted. If the patient does not undergo surgical resection, we would likely recommend fractionated radiosurgery to the large lesion. 2. Lung cancer: The patient has a large right lower lobe mass, for which he does not seem to be very symptomatic. If the patient does not get discharged for surgical resection of the brain lesion, it would be reasonable to consider biopsy of this via bronchoscopy. Time with Patient: Greater than 30
--- NOTE | 2024-12-22 14:04 | P.PN ---
Subjective Progress Note Date: 12/22/24 Subjective: Patient seen and examined at bedside. No acute events overnight. Pertinent positives and negatives as discussed above, a complete review of systems was performed and all other systems are negative. Vitals Signs Reviewed. General: Nontoxic, no distress, appears at stated age Derm: Warm, dry Head: Atraumatic, normocephalic, symmetric Eyes: EOMI, no lid lag, anicteric sclera Mouth: No lip lesion, mucus membranes moist Cardiovascular: S1S2 reg, no murmur Lungs: CTA bilateral, no rhonchi, no rales, no accessory muscle use Abdominal: Soft, nontender to palpation, no guarding, no appreciable organomegaly Ext: No gross muscle atrophy, no edema, no contractures Neuro: CN II-XI grossly intact, no focal neuro deficits Psych: Alert, oriented x 2, appropriate affect Data Reviewed Today: Pertinent Labs: CBC and BMP pending, will be reviewed when available Imaging: Brain MRI showed 2 metastatic lesions, the largest within the right frontal lobe resulting in right to left shift and impending subfalcine herniation, additional tiny 5 mm lesion high left frontal parietal lobe with surrounding vasogenic edema. Chest/abdomen/pelvis CT showed right lower lobe masslike consolidation likely primary lung malignancy with surrounding atelectasis, trace right pleural effusion, aortoiliac occlusive disease with complete occlusion of the distal aorta just after the origin of STAN due to mural thrombus, not enhancement of bilateral common iliac arteries and left external iliac artery, distal reconstitution bilaterally Assessment and Plan: Active: Metastatic brain lesions with vasogenic edema, leftward shift as well as impending subfalcine herniation Lung mass, likely primary lung malignancy Encephalopathy, secondary to above Alcohol dependence Nicotine dependence Peripheral vascular disease -Had discussion with oncology, will likely need neurosurgical evaluation -Radiation oncology also evaluated patient, recommending neurosurgical evaluation prior to starting any radiation therapy -Patient currently on dexamethasone 4 mg IV every 6 hours, Keppra 500 mg p.o. every 12 hours per seizure prophylaxis -Also on Protonix 40 IV twice daily for GI prophylaxis -Neurochecks, seizure precautions, fall precautions, telemetry -He will need further evaluation of peripheral vascular disease, no concern for acute limb ischemia -Will start patient on statin therapy, hold aspirin given no acute vascular thrombosis and patient may need neurosurgical intervention. -No recent alcohol use, continue to monitor for withdrawal -Counseled regarding smoking cessation Leukocytosis -Repeat CBC DVT ppx: SCDs Code status: Full code Anticipated discharge place: Likely transfer to [facility] Anticipated discharge time: Pending clinical course Objective - Vital Signs Vital signs: Vital Signs Temp 98.0 F 12/22/24 13:12 Pulse 54 L 12/22/24 13:12 Resp 14 12/22/24 13:12 BP 152/57 12/22/24 13:12 Pulse Ox 94 L 12/22/24 13:12 FiO2 Intake & Output 12/21/24 12/22/24 12/22/24 18:59 06:59 18:59 Intake Total 480 Balance 480 Weight 65.771 kg Intake: Oral 480 Other: Voiding Method Diaper Diaper Diaper # Voids 2 2 - Labs CBC & Chem 7: 12/21/24 06:12 12/21/24 06:12
[2024-12-22 14:52] LABS: Basophils % (A) 0 %; Eosinophils # (A) 0.2 k/uL (0-0.7); Eosinophils % (A) 1 %; HCT 36.6 % (39.0-53.0); HGB 11.2 gm/dL (13.0-17.5); Hypochromasia Slight; Lymphocytes # (A) 0.8 k/uL (1.0-4.8); Lymphocytes % (A) 7 %; MCH 26.9 pg (25.0-35.0); MCHC 30.7 g/dL (31.0-37.0); MCV 87.4 fL (80.0-100.0); Mean Platelet Volume 7.4; Monocytes # (A) 0.3 k/uL (0-1.0); Monocytes % (A) 3 %; Neutrophils # (A) 9.5 k/uL (1.3-7.7); Neutrophils % (A) 88 %; Platelet Count 448 k/uL (150-450); RBC 4.19 m/uL (4.30-5.90); RDW 13.6 % (11.5-15.5); WBC 10.8 k/uL (3.8-10.6)
[2024-12-22 15:02] LABS: African American GFR (CKD) >90 (>60 ml/min/1.73 sqM); Anion Gap 8 mmol/L; Blood Urea Nitrogen 19 mg/dL (9-20); Calcium 9.5 mg/dL (8.4-10.2); Carbon Dioxide 28 mmol/L (22-30); Chloride 100 mmol/L (98-107); Glucose 150 mg/dL (74-99); Non-African American GFR(CKD) >90 (>60 ml/min/1.73 sqM); Potassium 4.5 mmol/L (3.5-5.1); Sodium 136 mmol/L (137-145)
--- NOTE | 2024-12-22 16:47 | P.PN ---
Subjective Progress Note Date: 12/22/24 Principal diagnosis: Brain lesion x2, symptomatic, vasogenic edema, RLL lung mass, mediastinal LAD Pt seen today in f/u, no significant change in mental status, no new or worsenin g neurological symptoms, vomiting, mild irritability is stable. Objective - Vital Signs Vital signs: Vital Signs Temp 98.0 F 12/22/24 13:12 Pulse 54 L 12/22/24 13:12 Resp 14 12/22/24 13:12 BP 152/57 12/22/24 13:12 Pulse Ox 94 L 12/22/24 13:12 FiO2 Intake & Output 12/21/24 12/22/24 12/22/24 18:59 06:59 18:59 Intake Total 480 Balance 480 Weight 65.771 kg Intake: Oral 480 Other: Voiding Method Diaper Diaper Diaper # Voids 2 2 1 - Constitutional General appearance: Present: cooperative, no acute distress, thin - EENT Eyes: Present: anicteric sclerae, EOMI ENT: Present: hearing grossly normal - Respiratory Details: resp even and unlabored at rest - Cardiovascular Details: skin warm, well perfused - Peripheral edema leg Peripheral Edema: bilateral: None - Gastrointestinal General gastrointestinal: Present: soft - Integumentary Integumentary: Present: normal - Neurologic Neurologic: Present: CNII-XII intact (grossly) - Psychiatric Psychiatric Comment(s): A&O x 2 - Labs CBC & Chem 7: 12/22/24 14:35 12/22/24 14:35 Labs: Abnormal Lab Results - Last 24 Hours (Table) 12/22/24 12/22/24 Range/Units 14:35 14:35 WBC 10.8 H (3.8-10.6) k/uL RBC 4.19 L (4.30-5.90) m/uL Hgb 11.2 L (13.0-17.5) gm/dL Hct 36.6 L (39.0-53.0) % MCHC 30.7 L (31.0-37.0) g/dL Neutrophils # 9.5 H (1.3-7.7) k/uL Lymphocytes # 0.8 L (1.0-4.8) k/uL Sodium 136 L (137-145) mmol/L Creatinine 0.55 L (0.66-1.25) mg/dL Glucose 150 H (74-99) mg/dL - Imaging and Cardiology CT scan - abdomen: report reviewed CT scan - chest: report reviewed CT scan - pelvis: report reviewed Assessment and Plan (1) Brain mass Current Visit: Yes Status: Acute Priority: High Code(s): G93.89 - OTHER SPECIFIED DISORDERS OF BRAIN SNOMED Code(s): 685814004 (2) Lung mass Current Visit: Yes Status: Acute Priority: High Code(s): R91.8 - OTHER NONSPECIFIC ABNORMAL FINDING OF LUNG FIELD SNOMED Code(s): 227820654 Plan: Brain mass with significant vasogenic edema, subfalcine herniation of 11 mm, midline shift -Med and Rad Onc reviewed the case and MRI. Recommendation is for Neurosugical evaluation. If brain lesion is able to be resected then specimen can be sent for pathology and the edema in the surrounding area should resolve. If pt is not felt to be surgical candidate or surgical resection is not felt to be the best course of action then, pt will continue on steroids and be referred for biopsy- on review of images looks like the RLL mass could be accessed percutaneously. Pt will also need to be seen by Rad Onc to prepare for radiation/SRS -Cont dex and PPI as prescribed -Reviewed case with [facility]/MD. They are preparing pt for transfer -CT CAP with contrast reporting biapical pleural/parenchymal scarring. Trace right pleural effusion. Large right lower lobe masslike consolidation measuring 9.8 x 7.1 cm with central low-density measuring up to 5 cm. This extends into the right pulmonary hilum. 4.4 mm left lower lobe pulmonary nodule. Mediastinum has a 1.5 cm pretracheal lymph node with subcarinal confluent adenopathy with the right hilar and right lower lobe mass measuring up to 1.7 cm. Right hilar lymph node which is confluent with the right lower lobe mass measuring up to 2.7 cm. No osseous lesions, soft tissue lymph nodes, liver lesions or other evidence of disease is reported. The results were reviewed with the patient and his at the bedside. Clinical picture concerning for metastatic lung cancer. All other questions and concerns were addressed. They understand the plan. T miguel ángel are in agreement with transfer to Neurosurgery for neurosurgical evaluation. Doctor attests: I performed a history and physical examination of this patient, developed impression and plan of care. Discussed with dictator. I agree with dictators note, documented as a scribe.
[2024-12-22] MEDS: ATORVASTATIN 40 MG TAB PO SCH (21:17)
[2024-12-23 08:54] LABS: African American GFR (CKD) >90 (>60 ml/min/1.73 sqM); Anion Gap 5 mmol/L; Blood Urea Nitrogen 23 mg/dL (9-20); Calcium 9.2 mg/dL (8.4-10.2); Carbon Dioxide 30 mmol/L (22-30); Chloride 101 mmol/L (98-107); Glucose 138 mg/dL (74-99); Non-African American GFR(CKD) >90 (>60 ml/min/1.73 sqM); Potassium 4.1 mmol/L (3.5-5.1); Sodium 136 mmol/L (137-145)
[2024-12-23 10:16] LABS: Basophils # (A) 0.01 X 10*3/uL (0.00-0.10); Basophils % (A) 0.1 %; Eosinophils # (A) 0.02 X 10*3/uL (0.04-0.35); Eosinophils % (A) 0.2 %; HCT 35.8 % (39.6-50.0); HGB 11.6 g/dL (13.0-17.0); Lymphocytes # (A) 0.69 X 10*3/uL (0.90-5.00); Lymphocytes % (A) 5.6 %; MCH 27.8 pg (27.0-32.0); MCHC 32.4 g/dL (32.0-37.0); MCV 85.6 FL (80.0-97.0); Mean Platelet Volume 9.8 FL (9.5-12.2); Monocytes # (A) 0.34 X 10*3/uL (0.20-1.00); Monocytes % (A) 2.8 %; NRBC Per 100 WBC 0 X 10*3/uL (0.00-0.01); Neutrophils # (A) 11.11 X 10*3/uL (1.80-7.70); Neutrophils % (A) 90.7 %; Platelet Count 499 X 10*3/uL (140-440); RBC 4.18 X 10*6/uL (4.40-5.60); RDW 13.6 % (11.5-14.5); WBC 12.24 X 10*3/uL (4.50-10.00)
--- NOTE | 2024-12-23 14:56 | P.PN ---
Subjective Progress Note Date: 12/23/24 No acute events overnight. Pt is A&Ox 3, answering questions appropriately. Reporting improvement in LUE control. No new neuro deficits. Continues decadron Objective - Vital Signs Vital signs: Vital Signs Temp 98.0 F 12/23/24 07:42 Pulse 64 12/23/24 07:42 Resp 16 12/23/24 07:42 BP 168/71 12/23/24 07:42 Pulse Ox 97 12/23/24 07:42 FiO2 Intake & Output 12/22/24 12/23/24 12/23/24 18:59 06:59 18:59 Other: Voiding Method Diaper Diaper Diaper Incontinent Incontinent # Voids 0 3 - Constitutional General appearance: Present: no acute distress - EENT Eyes: Present: anicteric sclerae, EOMI ENT: Present: hearing grossly normal - Respiratory Details: breathing is even and unlabored - Cardiovascular Details: skin warm and dry - Integumentary Integumentary: Absent: cyanotic, jaundiced - Psychiatric Psychiatric: Present: A&O x's 3 - Labs CBC & Chem 7: 12/23/24 08:24 12/23/24 08:24 Labs: Abnormal Lab Results - Last 24 Hours (Table) 12/22/24 12/22/24 12/23/24 Range/Units 14:35 14:35 08:24 WBC 10.8 H 12.24 H (3.8-10.6) k/uL RBC 4.19 L 4.18 L (4.30-5.90) m/uL Hgb 11.2 L 11.6 L (13.0-17.5) gm/dL Hct 36.6 L 35.8 L (39.0-53.0) % MCHC 30.7 L (31.0-37.0) g/dL Plt Count 499 H (140-440) X 10*3/uL Immature Gran # 0.07 H (0.00-0.04) X 10*3/uL Neutrophils # 9.5 H 11.11 H (1.3-7.7) k/uL Lymphocytes # 0.8 L 0.69 L (1.0-4.8) k/uL Eosinophils # 0.02 L (0.04-0.35) X 10*3/uL Sodium 136 L (137-145) mmol/L BUN (9-20) mg/dL Creatinine 0.55 L (0.66-1.25) mg/dL Glucose 150 H (74-99) mg/dL 12/23/24 Range/Units 08:24 WBC (3.8-10.6) k/uL RBC (4.30-5.90) m/uL Hgb (13.0-17.5) gm/dL Hct (39.0-53.0) % MCHC (31.0-37.0) g/dL Plt Count (140-440) X 10*3/uL Immature Gran # (0.00-0.04) X 10*3/uL Neutrophils # (1.3-7.7) k/uL Lymphocytes # (1.0-4.8) k/uL Eosinophils # (0.04-0.35) X 10*3/uL Sodium 136 L (137-145) mmol/L BUN 23 H (9-20) mg/dL Creatinine 0.50 L (0.66-1.25) mg/dL Glucose 138 H (74-99) mg/dL Assessment and Plan (1) Brain mass Current Visit: Yes Status: Acute Priority: High Code(s): G93.89 - OTHER SPECIFIED DISORDERS OF BRAIN SNOMED Code(s): 763597631 (2) Lung mass Current Visit: Yes Status: Acute Priority: High Code(s): R91.8 - OTHER NONSPECIFIC ABNORMAL FINDING OF LUNG FIELD SNOMED Code(s): 991832637 (3) Multiple falls Current Visit: Yes Status: Acute Code(s): R29.6 - REPEATED FALLS SNOMED Code(s): 168243313 (4) Weakness Current Visit: Yes Status: Acute Code(s): R53.1 - WEAKNESS SNOMED Code(s): 85796138 Plan: Brain mass with significant vasogenic edema, subfalcine herniation, midline shift -Med and Rad Onc reviewed the case and MRI. Recommendation is for Neurosugical evaluation. If brain lesion is able to be resected then specimen can be sent for pathology and the edema in the surrounding area should resolve. If pt is not felt to be surgical candidate or surgical resection is not felt to be the best course of action then, pt will continue on steroids and be referred for biopsy- on review of images looks like the RLL mass could be accessed percutaneously. Pt will also need to be seen by Rad Onc to prepare for radiation/SRS -Cont dex and PPI as prescribed -Reviewed case with [employer]/MD. Transfer to [facility] was declined by their neurosurgery team per rad onc. Dr. Petar Stinson has tried to reach Dr. Nichols at [facility], awaiting response. -CT CAP with contrast reporting biapical pleural/parenchymal scarring. Trace right pleural effusion. Large right lower lobe masslike consolidation measuring 9.8 x 7.1 cm with central low-density measuring up to 5 cm. This extends into the right pulmonary hilum. 4.4 mm left lower lobe pulmonary nodule. Mediastinum has a 1.5 cm pretracheal lymph node with subcarinal confluent adeno cathy with the right hilar and right lower lobe mass measuring up to 1.7 cm. Right hilar lymph node which is confluent with the right lower lobe mass measuring up to 2.7 cm. No osseous lesions, soft tissue lymph nodes, liver lesions or other evidence of disease is reported. The results were reviewed with the patient and his at the bedside. Clinical picture concerning for metastatic lung cancer. All other questions and concerns were addressed. They understand the plan. They are in agreement with transfer for neurosurgical evaluation.
[2024-12-23 19:33] VITALS: BP 186/70; PULSE 50; RESP 16; TEMP 98
--- NOTE | 2024-12-23 19:51 | P.DS ---
Providers Date of admission: 12/21/24 07:58 Expected date of discharge: 12/23/24 Attending physician: Paras Gonzales Consults: 12/21/24 09:23 Consult Physician Urgent Consulting Provider: Jamal Rose Consult Reason/Comments: Brain, lung mass Do you want consulting provider notified?: Yes 12/21/24 12:58 Consult Physician Stat Consulting Provider: Timo Amato Consult Reason/Comments: brain lesions Do you want consulting provider notified?: Already Contacted Primary care physician: Stated None Hospital Course: Discharge Diagnosis: Metastatic brain lesions with vasogenic edema Lung mass Encephalopathy Hospital Course: The Patient is a pleasant 68-year-old male with a past medical history of alcohol abuse and nicotine dependence. He presented to the emergency department with a chief complaint of recurrent falls at home. Per report from ED provider patient has had recurrent falls over the last several weeks to months accompanied by left-sided weakness and intermittent confusion. He underwent recent admission at [facility] secondary to alcohol withdrawal symptoms and has reportedly not drink since. Upon arrival to our facility, patient underwent ev aluation in the emergency department. Vital signs upon arrival show blood pressure 161/68, heart rate 76, respiratory rate 18, temp 98.2 F, and SpO2 of 97% on room air. EKG completed showing normal sinus rhythm at 67 bpm with no significant T wave or ST abnormality showing no signs of acute ischemia upon personal review and interpretation. CT head and cervical spine showing intra- axial masses suggestive of metastatic disease with a leftward shift subfalcine herniation secondary to vasogenic edema up to 11 mm and no evidence of cervical spine fracture. Chest x-ray showing right perihilar fullness concerning for mass. Brain MRI showed 2 metastatic lesions, the largest within the right frontal lobe resulting in right to left shift and impending subfalcine herniation, additional tiny 5 mm lesion high left frontal parietal lobe with surrounding vasogenic edema. Chest/abdomen/pelvis CT showed right lower lobe masslike consolidation likely primary lung malignancy with surrounding atele ctasis, trace right pleural effusion, aortoiliac occlusive disease with complete occlusion of the distal aorta just after the origin of STAN due to mural thrombus, not enhancement of bilateral common iliac arteries and left external iliac artery, distal reconstitution bilaterally. The patient was given IV Decadron, and started on Levatiracetam for seizure prophylaxis. Radiation/oncology was consulted, who recommended neurosurgery consultation for possible resection of the brain mass, prior to any radiation therapy. This was discussed with the family, who was agreeable to plan. Neurosurgery services were not available at this facility, and[facility] in [place]. Patient was accepted for neurosurgery consultation by Dr. Nichols, and was discharged in stable condition. Patient seen and examined at bedside Vital signs reviewed and stable. General: [nontoxic], [no distress], [appears at stated age] Derm: [warm], [dry] Head: [atraumatic], [normocephalic], [symmetric] Eyes: [EOMI], [no lid lag], [anicteric sclera] Mouth: [no lip lesion], [mucus membranes moist] Cardiovascular: [S1S2 reg], [no murmur] Lungs: [CTA bilateral], [no rhonchi, no rales] , [no accessory muscle use] Abdominal: [soft], [ nontender to palpation], [no guarding], [no appreciable organomegaly] Ext: [no gross muscle atrophy], [no edema], [no contractures] Neuro: [ CN II-XI grossly intact], [no focal neuro deficits] Psych: [Alert], [oriented], [appropriate affect] A total of 30 minutes of time were spent preparing this complex discharge summary. Patient was discharged on 12/23/2024. Patient Condition at Discharge: Serious Plan - Discharge Summary New Discharge Prescriptions: No Action No Known Home Medications Discharge Medication List No Known Home Medications 11/30/24 [History] Follow up Appointment(s)/Referral(s): [facility] [NON-STAFF] - 1-2 Days Discharge Disposition: TRANSFER TO SHORT TERM [facility]
== END 2024-12-23 20:10 | disposition short-term general hospital (02) | DRG 180 ==
LOC: EC 05:13 → 5NMEDONC 07:57 → OBSVTOIN 07:58 → 5NMEDONC 10:12
PROVIDERS: ADMIT Student in an Organized Health Care Education/Training Program; ATTEND Student in an Organized Health Care Education/Training Program
DX: C34.31 Malignant neoplasm of lower lobe, right bronchus or lung (principal); G93.5 Compression of brain; G93.6 Cerebral edema; G93.40 Encephalopathy, unspecified; C79.31 Secondary malignant neoplasm of brain; F10.10 Alcohol abuse, uncomplicated; I10 Essential (primary) hypertension; I73.9 Peripheral vascular disease, unspecified; J98.11 Atelectasis; D72.829 Elevated white blood cell count, unspecified; Z11.52 Encounter for screening for COVID-19; F17.210 Nicotine dependence, cigarettes, uncomplicated; Z71.6 Tobacco abuse counseling; R53.1 Weakness; I25.10 Atherosclerotic heart disease of native coronary artery without angina pectoris; R29.6 Repeated falls; T38.0X5A Adverse effect of glucocorticoids and synthetic analogues, initial encounter; Z91.81 History of falling; X58.XXXA Exposure to other specified factors, initial encounter
CPT/HCPCS: 36415; 70450; 70553; 71046; 71260; 72125; 74177; 80048; 80053; 80320; 81003; 83605; 83735; 84100; 84484; 85025; 87636; 93005; 96361; 96374; 96375; 99285

== ENCOUNTER 2025-02-05 16:23 | Inpatient (IN) | payer MEDICARE ==
--- NOTE | 2025-02-05 17:24 | ED ---
General Adult HPI - General Chief complaint: Fall Stated complaint: Weakness Time Seen by Provider: 02/05/25 16:30 Source: patient, EMS, RN notes reviewed, old records reviewed Mode of arrival: EMS - History of Present Illness Initial comments: Is a 69-year-old male who presents to the emergency department a history of lung cancer with metastatic disease to the brain. Patient recently had radiation and since then he has become very weak and lethargic. Patient is alert and oriented but he is becoming so weak it is difficult for him to stand on his own and he is becoming a handful for his . Patient denies any fever chills or cough. Patient denies any chest pain or palpitations. Patient has any shortness of breath or difficulty breathing. Patient denies any nausea vomiting or diarrhea. Patient denies abdominal pain. Patient denies any recent fall but today he did feel like he would go down so he slowly sat himself down without injury. - Related Data Home Medications Medication Instructions Recorded Confirmed No Known Home Medications 11/30/24 12/21/24 Allergies Allergy/AdvReac Type Severity Reaction Status Date / Time No Known Allergies Allergy Verified 12/21/24 10:05 Review of Systems ROS Statement: Those systems with pertinent positive or pertinent negative responses have been documented in the HPI. ROS Other: All systems not noted in ROS Statement are negative. Past Medical History Past Medical History: Coronary Artery Disease (CAD), Cancer Additional Past Medical History / Comment(s): Hx lung CA and brain tumor recently under went Stereotactic body radiation x5 treatments. History of Any Multi-Drug Resistant Organisms: None Reported Past Surgical History: No Surgical Hx Reported Past Psychological History: No Psychological Hx Reported Smoking Status: Former smoker Past Alcohol Use History: Rare Past Drug Use History: None Reported - Past Family History Father Family Medical History: Cancer (esophageal ) General Exam - General Exam Comments Initial Comments: GENERAL: Patient is well-developed and well-nourished. Patient is nontoxic and well-hydrated and is in no acute distress. ENT: Neck is soft and supple. No significant lymphadenopathy is noted. Oropharynx is clear. Moist mucous membranes. Neck has full range of motion without eliciting any pain. EYES: The sclera were anicteric and conjunctiva were pink and moist. Extraocular movements were intact and pupils were equal round and reactive to light. Eyelids were unremarkable. PULMONARY: Unlabored respirations. Good breath sounds bilaterally. No audible rales rhonchi or wheezing was noted. CARDIOVASCULAR: There is a regular rate and rhythm without any murmurs gallops or rubs. ABDOMEN: Soft and nontender with normal bowel sounds. SKIN: Skin is clear with no lesions or rashes and otherwise unremarkable. NEUROLOGIC: Patient is alert and oriented x3. Cranial nerves II through XII are grossly intact. Motor and sensory are also intact. Normal speech, volume and content. Symmetrical smile. MUSCULOSKELETAL: Normal extremities with adequate strength and full range of motion. No lower extremity swelling or edema. No calf tenderness. LYMPHATICS: No significant lymphadenopathy is noted PSYCHIATRIC: Normal psychiatric evaluation. Course Vital Signs 02/05/25 02/05/25 16:27 20:28 Temperature 98.0 F Pulse Rate 90 75 Respiratory 18 18 Rate Blood Pressure 154/73 173/78 O2 Sat by Pulse 99 97 Oximetry Medical Decision Making - Medical Decision Making EKG is interpreted by myself EKG shows a sinus rhythm at 80 bpm [place] was 132 QRS is 94 QT interval 344 QTc is 379. Patient's EKG shows no ST segment elevation or depression. Was pt. sent in by a medical professional or institution (, PA, FUSE COILER, urgent care, hospital, or penitentiary...) When possible be specific @ -No Did you speak to anyone other than the patient for history (EMS, parent, family, police, friend...)? What history was obtained from this source @ -No Did you review nursing and triage notes (agree or disagree)? Why? @ -I reviewed and agree with nursing and triage notes Were old charts reviewed (outside hosp., previous admission, EMS record, old EKG, old radiological studies, urgent care reports/EKG's, penitentiary records)? Report findings @ -No old charts were reviewed Differential Diagnosis? @ -Differential Weakness: Hypoglycemia, shock, sepsis, hyponatremia, anemia, infection, OH, ETOH, adverse medicine reaction, overdose, stroke, this is not meant to be an all-inclusive list. EKG interpreted by me (3pts min.). @ -As above X-rays interpreted by me (1pt min.). @ -None done CT interpreted by me (1pt min.). @ -CT scan shows a mass with some vasogenic edema and midline shift of 10 mm. This is all unchanged from a CAT scan a month and a half ago U/S interpreted by me (1pt. min.). @ -None done What testing was considered but not performed or refused? (CT, X-rays, U/S, labs)? Why? @ -None What meds were considered but not given or refused? Why? @ -None Did you discuss the management of the patient with other professionals (professionals i.e. Dr., PA, FUSE COILER, lab, RT, psych nurse, social welfare clerk, geophysics professor, teacher, community liaison officer, immigration case worker)? Give summary @ -I spoke with Dr. Tran and he agreed to see the patient on consult. I spoke with [facility] physicians. Was smoking cessation discussed for >3mins.? @ -No Was critical care preformed (if so, how long)? @ -No Were there social determinants of health that impacted care today? How? (Homelessness, low income, unemployed, alcoholism, drug addiction, transportation, low edu. Level, literacy, decrease access to med. care, senior care, rehab)? @ -No Was there de-escalation of care discussed even if they declined (Discuss DNR or withdrawal of care, Hospice)? DNR status @ -No What co-morbidities impacted this encounter? (DM, HTN, Smoking, COPD, CAD, Cancer, CVA, ARF, Chemo, Hep., AIDS, mental health diagnosis, sleep apnea, morbid obesity)? @ -None Was patient admitted / discharged? Hospital course, mention meds given and route, prescriptions, significant lab abnormalities, going to OR and other per tinent info. @ - I spoke with Dr. Tran he wanted the patient on steroids with a consult to oncology and the patient will be admitted to [facility] physicians. Undiagnosed new problem with uncertain prognosis? @ -No Drug Therapy requiring intensive monitoring for toxicity (Heparin, Nitro, Insulin, Cardizem)? @ -No Were any procedures done? @ -No Diagnosis/symptom? @ -Weakness Acute, or Chronic, or Acute on Chronic? @ -Acute Uncomplicated (without systemic symptoms) or Complicated (systemic symptoms)? @ -Default Side effects of treatment? @ -No Exacerbation, Progression, or Severe Exacerbation? @ -No Poses a threat to life or bodily function? How? (Chest pain, [place], OH, pneumonia, PE, COPD, DKA, ARF, appy, cholecystitis, CVA, Diverticulitis, Homicidal, Suicidal, threat to staff... and all critical care pts) @ -No Diagnosis/symptom? @ -Brain tumor with vasogenic edema Acute, or Chronic, or Acute on Chronic? @ -Acute Uncomplicated (without systemic symptoms) or Complicated (systemic symptoms)? @ -Complicated Side effects of treatment? @ -None Exacerbation, Progression, or Severe Exacerbation] @ -No Poses a threat to life or bodily function? @ -Yes could cause increasing edema in the brain. - Lab Data Result diagrams: 02/05/25 18:00 02/05/25 18:00 Lab Results 02/05/25 02/05/25 02/05/25 Range/Units 18:00 18:00 18:00 WBC 5.93 (4.50-10.00) 10*3/uL RBC 4.10 L (4.40-5.60) 10*6/uL Hgb 12.0 L (13.0-17.0) g/dL Hct 34.7 L (39.6-50.0) % MCV 84.6 (80.0-97.0) fL MCH 29.3 (27.0-32.0) pg MCHC 34.6 (32.0-37.0) g/dL Plt Count 186 (140-440) 10*3/uL MPV 8.2 L (9.5-12.2) fL Immature Gran % (Auto) 1.9 % Neutrophils % 67.8 % Lymphocytes % 20.6 % Monocytes % 9.3 % Eosinophils % 0.2 % Basophils % 0.2 % Immature Gran # 0.11 H (0.00-0.04) 10*3/uL Neutrophils # 4.03 (1.80-7.70) 10*3/uL Lymphocytes # 1.22 (0.90-5.00) 10*3/uL Monocytes # 0.55 (0.20-1.00) 10*3/uL Eosinophils # 0.01 L (0.04-0.35) 10*3/uL Basophils # 0.01 (0.00-0.10) 10*3/uL PT 10.3 (10.0-12.5) sec INR 0.9 (<1.2) APTT 20.2 L (22.0-30.0) sec Sodium (137-145) mmol/L Potassium (3.5-5.1) mmol/L Chloride (98-107) mmol/L Carbon Dioxide (22-30) mmol/L Anion Gap mmol/L BUN (9-20) mg/dL Creatinine (0.66-1.25) mg/dL Est GFR (CKD-EPI)AfAm (>60 ml/min/1.73 sqM) Est GFR (CKD-EPI)NonAf (>60 ml/min/1.73 sqM) Glucose (74-99) mg/dL Plasma Lactic Acid Nicola (0.7-2.0) mmol/L Calcium (8.4-10.2) mg/dL Magnesium (1.6-2.3) mg/dL Total Bilirubin (0.2-1.3) mg/dL AST (17-59) U/L ALT (4-49) U/L Alkaline Phosphatase (38-126) U/L Troponin I (0.000-0.034) ng/mL Total Protein (6.3-8.2) g/dL Albumin (3.5-5.0) g/dL Urine Color Light Yellow Urine Appearance Clear (Clear) Urine pH 6.5 (5.0-8.0) Ur Specific [place] 1.017 (1.001-1.035) Urine Protein Negative (Negative) Urine Glucose (UA) Negative (Negative) Urine Ketones Negative (Negative) Urine Blood Negative (Negative) Urine Nitrite Negative (Negative) Urine Bilirubin Negative (Negative) Urine Urobilinogen <2.0 (<2.0) mg/dL Ur Leukocyte Esterase Negative (Negative) Urine Opiates Screen Not Detected (NotDetected) Ur Oxycodone Screen Not Detected (NotDetected) Urine Methadone Screen Not Detected (NotDetected) Ur Barbiturates Screen Not Detected (NotDetected) U Tricyclic Antidepress Not Detected (NotDetected) Ur Phencyclidine Scrn Not Detected (NotDetected) Ur Amphetamines Screen Not Detected (NotDetected) U Methamphetamines Scrn Not Detected (NotDetected) U Benzodiazepines Scrn Not Detected (NotDetected) Urine Cocaine Screen Not Detected (NotDetected) U Marijuana (THC) Screen Detected H (NotDetected) 05/04/25 05/04/25 05/04/25 Range/Units 18:00 18:00 18:00 WBC (4.50-10.00) 10*3/uL RBC (4.40-5.60) 10*6/uL Hgb (13.0-17.0) g/dL Hct (39.6-50.0) % MCV (80.0-97.0) fL MCH (27.0-32.0) pg MCHC (32.0-37.0) g/dL Plt Count (140-440) 10*3/uL MPV (9.5-12.2) fL Immature Gran % (Auto) % Neutrophils % % Lymphocytes % % Monocytes % % Eosinophils % % Basophils % % Immature Gran # (0.00-0.04) 10*3/uL Neutrophils # (1.80-7.70) 10*3/uL Lymphocytes # (0.90-5.00) 10*3/uL Monocytes # (0.20-1.00) 10*3/uL Eosinophils # (0.04-0.35) 10*3/uL Basophils # (0.00-0.10) 10*3/uL PT (10.0-12.5) sec INR (<1.2) APTT (22.0-30.0) sec Sodium 131 L (137-145) mmol/L Potassium 4.1 (3.5-5.1) mmol/L Chloride 97 L (98-107) mmol/L Carbon Dioxide 28 (22-30) mmol/L Anion Gap 6 mmol/L BUN 19 (9-20) mg/dL Creatinine 0.46 L (0.66-1.25) mg/dL Est GFR (CKD-EPI)AfAm >90 (>60 ml/min/1.73 sqM) Est GFR (CKD-EPI)NonAf >90 (>60 ml/min/1.73 sqM) Glucose 90 (74-99) mg/dL Plasma Lactic Acid Nicola 1.0 (0.7-2.0) mmol/L Calcium 9.2 (8.4-10.2) mg/dL Magnesium 2.1 (1.6-2.3) mg/dL Total Bilirubin 0.6 (0.2-1.3) mg/dL AST 29 (17-59) U/L ALT 74 H (4-49) U/L Alkaline Phosphatase 73 (38-126) U/L Troponin I <0.012 (0.000-0.034) ng/mL Total Protein 6.0 L (6.3-8.2) g/dL Albumin 3.6 (3.5-5.0) g/dL Urine Color Urine Appearance (Clear) Urine pH (5.0-8.0) Ur Specific [place] (1.001-1.035) Urine Protein (Negative) Urine Glucose (UA) (Negative) Urine Ketones (Negative) Urine Blood (Negative) Urine Nitrite (Negative) Urine Bilirubin (Negative) Urine Urobilinogen (<2.0) mg/dL Ur Leukocyte Esterase (Negative) Urine Opiates Screen (NotDetected) Ur Oxycodone Screen (NotDetected) Urine Methadone Screen (NotDetected) Ur Barbiturates Screen (NotDetected) U Tricyclic Antidepress (NotDetected) Ur Phencyclidine Scrn (NotDetected) Ur Amphetamines Screen (NotDetected) U Methamphetamines Scrn (NotDetected) U Benzodiazepines Scrn (NotDetected) Urine Cocaine Screen (NotDetected) U Marijuana (THC) Screen (NotDetected) Disposition Clinical Impression: Weakness, Brain mass, Vasogenic edema Disposition: ADMITTED IP TO THIS HOSP Referrals: Viraj Araujo DO [Primary Care Provider] - 1-2 days Time of Disposition: 21:14
[2025-02-05] MEDS: LACTATED RINGERS 1,000 ML IV ONE (18:03)
[2025-02-05 18:10] LABS: Basophils # (A) 0.01 10*3/uL (0.00-0.10); Basophils % (A) 0.2 %; Eosinophils # (A) 0.01 10*3/uL (0.04-0.35); Eosinophils % (A) 0.2 %; HCT 34.7 % (39.6-50.0); Lymphocytes # (A) 1.22 10*3/uL (0.90-5.00); Lymphocytes % (A) 20.6 %; MCH 29.3 pg (27.0-32.0); MCHC 34.6 g/dL (32.0-37.0); MCV 84.6 fL (80.0-97.0); Mean Platelet Volume 8.2 fL (9.5-12.2); Monocytes # (A) 0.55 10*3/uL (0.20-1.00); Monocytes % (A) 9.3 %; Neutrophils # (A) 4.03 10*3/uL (1.80-7.70); Neutrophils % (A) 67.8 %; Platelet Count 186 10*3/uL (140-440); RDW 20.3 % (11.5-14.5); WBC 5.93 10*3/uL (4.50-10.00)
[2025-02-05 18:25] LABS: Appearance,Urine Clear (Clear); Bilirubin,Urine Negative (Negative); Blood,Urine Negative (Negative); Color,Urine Light Yellow; Glucose,Urine (UA) Negative (Negative); Ketones,Urine Negative (Negative); Leukocyte Esterase,Urine Negative (Negative); Nitrite,Urine Negative (Negative); PH, Urine 6.5 (5.0-8.0); Protein,Urine Negative (Negative); Specific Gravity,Urine 1.017 (1.001-1.035); Urobilinogen,Urine <2.0 mg/dL (<2.0)
[2025-02-05 18:32] LABS: ALT 74 U/L (4-49); AST 29 U/L (17-59); African American GFR (CKD) >90 (>60 ml/min/1.73 sqM); Albumin 3.6 g/dL (3.5-5.0); Alkaline Phosphatase 73 U/L (38-126); Anion Gap 6 mmol/L; Blood Urea Nitrogen 19 mg/dL (9-20); Calcium 9.2 mg/dL (8.4-10.2); Carbon Dioxide 28 mmol/L (22-30); Chloride 97 mmol/L (98-107); Glucose 90 mg/dL (74-99); Magnesium 2.1 mg/dL (1.6-2.3); Non-African American GFR(CKD) >90 (>60 ml/min/1.73 sqM); Potassium 4.1 mmol/L (3.5-5.1); Sodium 131 mmol/L (137-145); Total Bilirubin 0.6 mg/dL (0.2-1.3)
[2025-02-05 18:36] LABS: Amphetamine Screen,Urine Not Detected (NotDetected); Barbiturate Screen,Urine Not Detected (NotDetected); Benzodiazepines Screen,Urine Not Detected (NotDetected); Cocaine Screen,Urine Not Detected (NotDetected); Methadone Screen, Urine Not Detected (NotDetected); Opiate Screen,Urine Not Detected (NotDetected); Oxycodone Screen, Urine Not Detected (NotDetected); Phencyclidine Screen,Urine Not Detected (NotDetected); Tricyclic Antidepressant,Urine Not Detected (NotDetected); Urn Cannabinoid Scrn Detected (NotDetected)
--- NOTE | 2025-02-05 18:40 | XR ---
EXAMINATION TYPE: XR chest 2V DATE OF EXAM: 02/05/2025 6:19 PM COMPARISON: 12/21/2024 CLINICAL INDICATION: Male, 69 years old with history of Weakness: Shortness of breath TECHNIQUE: XR chest 2V views of the chest are obtained. FINDINGS: Scattered senescent parenchymal changes noted. Hyperinflation compatible with COPD. Masslike consolidation reported on recent CT chest of 12/21/2024 at the right medial lung base. Heart size is stable. Mediastinal structures are stable and grossly unremarkable. No evidence for hilar prominence. Degenerative changes dorsal spine. IMPRESSION: 1. Masslike consolidation reported on recent CT chest of 12/21/2024 at the right medial lung base. [facility], , 02/05/2025 6:37 PM
[2025-02-05 18:42] LABS: INR 0.9 (<1.2); Prothrombin Time 10.3 sec (10.0-12.5)
[2025-02-05 18:45] LABS: Partial Thromboplastin Time 20.2 sec (22.0-30.0)
--- NOTE | 2025-02-05 18:55 | CT ---
EXAMINATION TYPE: CT brain wo con DATE OF EXAM: 02/05/2025 COMPARISON: 12/21/2024 CLINICAL INDICATION: Male, 69 years old with history of weakness; PHH, Fall at home- pt reports he wa s walking out of the bathroom with his walker when his legs got real weak and he lower himself to the ground. Pt denies hitting his head, no blood thinners. TECHNIQUE: CT scan of the head is performed without contrast. CT DLP: 1178.[address] CTDI: mGy Automated exposure control for dose reduction was used. FINDINGS: Again noted is right frontal lesion measuring approximately 2.1 cm versus previous measurement of minoo roximately 2 cm. There is surrounding vasogenic edema with right to left shift of 10 mm as was noted previously with subfalcine herniation unchanged from prior study. Additional lesion within the high l eft frontal lobe sub-5 mm with the small area of surrounding vasogenic edema. No evidence for intracranial hemorrhage or extra-axial collection. There is no acute intracranial hemorrhage or midline shift identified. There is diffuse ventricular a nd sulcal prominence consistent with diffuse age-related cerebral atrophy. There is low-attenuation in the periventricular white matter consistent with chronic small vessel ischemic change. The globes are intact and the visualized sinuses are clear. IMPRESSION: Again noted is right frontal lesion measuring approximately 2.1 cm versus previous measu rement of approximately 2 cm. There is surrounding vasogenic edema with right to left shift of 10 mm as was noted previously with subfalcine herniation unchanged from prior study. Additional lesion with in the high left frontal lobe sub-5 mm with the small area of surrounding vasogenic edema. [facility], , 02/05/2025 6:53 PM
[2025-02-05] MEDS: ACETAMINOPHEN TAB 500 MG TAB PO STA (20:23)
[2025-02-05] MEDS: DEXAMETHASONE SOD PHOSPHATE 10 MG/ML 1 ML VIAL IVP STA (20:25)
[2025-02-05] MEDS: SODIUM CHLORIDE 0.9% 1,000 ML IV ONE (21:25)
--- NOTE | 2025-02-06 01:26 | P.HPIM ---
History of Present Illness H&P Date: 02/05/25 69-year-old male coronary artery disease recent diagnosis of lung cancer with metastasis to the brain Patient was seen about a month ago where he was found to have brain mets he was transferred to a different facility for neurosurgery evaluation patient reports that eventually he received stereotactic body radiation 5 times and now he is experiencing generalized weakness and lethargy which has been progressive and getting worse patient has been having frequent falls at home without any serious injuries or passing out most of these falls he is able to land safely on the floor or on a piece of furniture without any injuries however it has becoming very challenging for his to take care of him and he is definitely unable to take care of himself anymore He otherwise denies any shortness of breath chest pain trouble breathing denies any changes in vision or hearing denies any headache nausea vomiting Patient denies tobacco smoking illicit drugs or heavy alcohol review of systems Pertinent positives as noted in HPI. All other systems were reviewed and are negative on exam Constitutional: No acute distress, conversant, pleasant Eyes: Anicteric sclerae, moist conjunctiva, Pupils equal round reactive to light ENMT: NC/AT Oropharynx clear, no erythema, or exudates Neck: Supple, no masses, or JVD No carotid bruits No thyromegaly Lungs: Clear to auscultation Clear to percussion Normal respiratory effort, no accessory muscle use Cardiovascular: Heart regular in rate and rhythm, No murmurs, gallops, or rubs No peripheral edema Abdominal: Soft Nontender, no guarding, rebound or rigidity Abdomen moving with respiration Normoactive bowel sounds Extremities: No digital cyanosis No clubbing Pedal pulses intact and symmetrical Radial pulses intact and symmetrical No calf tenderness Psychiatric: Alert and oriented to person, place and time Appropriate affect fair judgement Neuro Muscles Strength 5/5 in bilateral upper and right lower extremity, 4 out of 5 in left lower extremity Sensation to light touch grossly present throughout Cranial nerves II-XII grossly intact Past Medical History Past Medical History: Coronary Artery Disease (CAD), Cancer Additional Past Medical History / Comment(s): Hx lung CA and brain tumor recently under went Stereotactic body radiation x5 treatments. History of Any Multi-Drug Resistant Organisms: None Reported Past Surgical History: No Surgical Hx Reported Past Psychological History: No Psychological Hx Reported Smoking Status: Former smoker Past Alcohol Use History: Rare Past Drug Use History: None Reported - Past Family History Father Family Medical History: Cancer (esophageal ) Medications and Allergies Home Medications Medication Instructions Recorded Confirmed Type No Known Home Medications 11/30/24 12/21/24 History Allergies Allergy/AdvReac Type Severity Reaction Status Date / Time No Known Allergies Allergy Verified 12/21/24 10:05 Physical Exam Vitals: Vital Signs Temp Pulse Resp BP Pulse Ox 02/06/25 00:29 76 18 176/85 98 02/05/25 22:52 77 18 167/76 99 02/05/25 20:28 75 18 173/78 97 02/05/25 16:27 98.0 F 90 18 154/73 99 Intake and Output 02/05/25 02/05/25 02/06/25 14:59 22:59 06:59 Other: Weight 72.575 kg Results CBC & Chem 7: 02/05/25 18:00 02/05/25 18:00 Labs: Abnormal Lab Results - Last 24 Hours (Table) 02/05/25 02/05/25 02/05/25 Range/Units 18:00 18:00 18:00 RBC 4.10 L (4.40-5.60) 10*6/uL Hgb 12.0 L (13.0-17.0) g/dL Hct 34.7 L (39.6-50.0) % MPV 8.2 L (9.5-12.2) fL Immature Gran # 0.11 H (0.00-0.04) 10*3/uL Eosinophils # 0.01 L (0.04-0.35) 10*3/uL APTT 20.2 L (22.0-30.0) sec Sodium (137-145) mmol/L Chloride (98-107) mmol/L Creatinine (0.66-1.25) mg/dL ALT (4-49) U/L Total Protein (6.3-8.2) g/dL U Marijuana (THC) Screen Detected H (NotDetected) 02/05/25 Range/Units 18:00 RBC (4.40-5.60) 10*6/uL Hgb (13.0-17.0) g/dL Hct (39.6-50.0) % MPV (9.5-12.2) fL Immature Gran # (0.00-0.04) 10*3/uL Eosinophils # (0.04-0.35) 10*3/uL APTT (22.0-30.0) sec Sodium 131 L (137-145) mmol/L Chloride 97 L (98-107) mmol/L Creatinine 0.46 L (0.66-1.25) mg/dL ALT 74 H (4-49) U/L Total Protein 6.0 L (6.3-8.2) g/dL U Marijuana (THC) Screen (NotDetected) Assessment and Plan Assessment: 69-year-old male with lung cancer with metastasis to the brain presenting due to generalized weakness and difficulty with activities of daily living I discussed case with the doctor and accepted the admission for vasogenic edema of the brain due to brain mets with anticipated length of stay more than 2 midnights Lung cancer with brain mets with vasogenic edema and midline shift Fall precautions Seizure precautions ED discussed the case with neurology on-call who accepted to keep the patient for further management Patient received 10 mg IV push of dexamethasone and will continue with 4 mg IV push twice daily CT scan of the brain showed right frontal lesion measuring 2.1 cm versus previous measurement of 2 cm. With surrounding vasogenic edema with right to left shift of 10 mm as was noted previously with subfalcine herniation unchanged from prior study additional lesion within the high left frontal lobe sub-5 mm with a small area of surrounding vasogenic edema Hyponatremia Sodium 131 IV fluid hydration normal saline at 75 cc/h Monitor sodium levels to avoid possibility of syndrome of inappropriate antidiuretic hormone Rest of the blood work unremarkable white count 5.9 hemoglobin 12 potassium 4.1 BUN 19 creatinine 0.46 urine analysis was unremarkable Urine drug screen was positive for marijuana Full code DVT prophylaxis Lovenox 40 mg subcu daily
[2025-02-06] MEDS ORDERED: DEXTROSE 50% SYRINGE 50 ML IVP PRN ×2 (08:02)
[2025-02-06 08:28] LABS: Blood Urea Nitrogen 15.3 mg/dL (9.0-27.0); Calcium 8.6 mg/dL (8.7-10.3); Carbon Dioxide 21.1 mmol/L (21.6-31.8); Chloride 96 mmol/L (96-109); Glucose 225 mg/dL (70-110); Potassium 4.1 mmol/L (3.5-5.5); Sodium 132 mmol/L (135-145)
[2025-02-06] MEDS: ENOXAPARIN 40 MG/0.4 ML SYRINGE SQ SCH (08:42)
[2025-02-06] MEDS: levETIRAcetam IV 500 MG/5 ML VIAL IVP SCH (08:43)
[2025-02-06] MEDS: PANTOPRAZOLE 40 MG TABLET PO SCH (08:43)
[2025-02-06] MEDS ORDERED: DEXAMETHASONE SOD PHOSPHATE 10 MG/ML 1 ML VIAL IVP SCH (09:00)
[2025-02-06] MEDS ORDERED: DEXAMETHASONE SOD PHOSPHATE 4 MG/ML 1 ML VIAL IVP SCH (09:00)
--- NOTE | 2025-02-06 10:42 | P.PN ---
Subjective Progress Note Date: 02/06/25 Hospital Course: A 69-year-old male with past medical history of recent diagnosis of lung cancer with metastasis to the brain, recently completed radiation therapy last treatment last Thursday per patient, has been having progressive generalized body weakness, lethargy, frequent falls, unable to take care of him as well as having troubles taking care of him. On arrival patient was afebrile with elevated blood pressure in 170s, satting well on room air. Blood work revealed normal WBC, stable hemoglobin of 12, sodium 131, potassium normal, creatinine 0.46, glucose 90, AST normal, ALT 74, troponin negative, UA negative, UDS positive for THC. CT brain showed right frontal lesion 2.1 cm, previously measuring 2 cm with surrounding vasogenic edema and right to left shift of 10 mm as was noted previously with subfalcine herniation unchanged from prior study, additional lesion within the high left frontal lobe sub-5 mm with a small area of surrounding vasogenic edema. He was admitted for further evaluation, oncology consulted. Neurology initially consulted as well, discussed with Dr. Gonsales, patient had recent brain MRI, known metastatic disease, already on Decadron and Keppra, no additional interventions from neurology standpoint , neurology consult was discontinued, neurology to be contacted as needed. 5/5: Feels somewhat better, still generally weak, was able to keep food down, sodium went up to 132. Decadron increased to 4 mg every 6 hours as needed, started on Keppra 5 mg IV every 12 hours, oncology consult pending Pertinent positives and negatives as discussed above, a complete review of systems was performed and all other systems are negative. Vitals Signs Reviewed. General: [nontoxic], [no distress], [appears at stated age] Derm: [warm], [dry] Head: [atraumatic], [normocephalic], [symmetric] Eyes: [EOMI], [no lid lag], [anicteric sclera] Mouth: [no lip lesion], [mucus membranes moist] Cardiovascular: [S1S2 reg], [no murmur] Lungs: [CTA bilateral], [no rhonchi, no rales] , [no accessory muscle use] Abdominal: [soft], [ nontender to palpation], [no guarding], [no appreciable organomegaly] Ext: [no gross muscle atrophy], [no edema], [no contractures] Neuro: [ CN II-XI grossly intact], [strength 4 out of 5 in bilateral lower extremities, 5/5 in bilateral upper extremities Psych: [Alert], [oriented], [appropriate affect] Assessment and Plan: Generalized weakness and recurrent falls secondary to brain mets, vasogenic edema and midline shift Lung cancer with brain mets - Oncology consulted, appreciate recommendations - Continue Decadron 4 mg IV every 6 hours, continue Keppra 500 mg IV twice daily -Accu-Cheks, SSI for steroid-induced hyperglycemia - Fall precautions, seizure precautions - PT OT, social work consulted Acute hyponatremia - Sodium 131 on admission, started on normal saline at 75 cc, improved to 132, continue IVF, monitor BMP daily I have reviewed the following customer sales consultant notes: Oncology note from previous admission I have reviewed the results of the following tests: CBC, BMP I have ordered the following tests: Daily BMP to monitor for hyponatremia I have discussed the care of this patient with the following independent historian: RN I have independently interpreted the following test below: As above I have discussed the management of this patient with the following physician: Neurology DVT ppx: Lovenox Code status: Full code Anticipated discharge place: TBD Anticipated discharge time: TBD Objective - Vital Signs Vital signs: Vital Signs Temp 97.9 F 02/06/25 08:11 Pulse 74 02/06/25 08:11 Resp 16 02/06/25 08:11 BP 178/76 02/06/25 08:11 Pulse Ox 99 02/06/25 08:11 FiO2 Intake & Output 02/05/25 02/06/25 02/06/25 18:59 06:59 18:59 Intake Total 480 Output Total 600 Balance -600 480 Weight 72.575 kg Intake: Oral 480 Output: Urine 600 Other: # Voids 1 # Bowel Movements 1 - Labs CBC & Chem 7: 02/05/25 18:00 02/06/25 05:32 Labs: Abnormal Lab Results - Last 24 Hours (Table) 02/05/25 02/05/25 02/05/25 Range/Units 18:00 18:00 18:00 RBC 4.10 L (4.40-5.60) 10*6/uL Hgb 12.0 L (13.0-17.0) g/dL Hct 34.7 L (39.6-50.0) % MPV 8.2 L (9.5-12.2) fL Immature Gran # 0.11 H (0.00-0.04) 10*3/uL Eosinophils # 0.01 L (0.04-0.35) 10*3/uL APTT 20.2 L (22.0-30.0) sec Sodium (137-145) mmol/L Chloride (98-107) mmol/L Carbon Dioxide (21.6-31.8) mmol/L Anion Gap (4.00-12.00) mmol/L Creatinine (0.66-1.25) mg/dL BUN/Creatinine Ratio (12.00-20.00) Ratio Glucose (70-110) mg/dL Calcium (8.7-10.3) mg/dL ALT (4-49) U/L Total Protein (6.3-8.2) g/dL U Marijuana (THC) Screen Detected H (NotDetected) 02/05/25 02/06/25 Range/Units 18:00 05:32 RBC (4.40-5.60) 10*6/uL Hgb (13.0-17.0) g/dL Hct (39.6-50.0) % MPV (9.5-12.2) fL Immature Gran # (0.00-0.04) 10*3/uL Eosinophils # (0.04-0.35) 10*3/uL APTT (22.0-30.0) sec Sodium 131 L 132 L (137-145) mmol/L Chloride 97 L (98-107) mmol/L Carbon Dioxide 21.1 L (21.6-31.8) mmol/L Anion Gap 14.90 H (4.00-12.00) mmol/L Creatinine 0.46 L (0.66-1.25) mg/dL BUN/Creatinine Ratio 25.50 H (12.00-20.00) Ratio Glucose 225 H (70-110) mg/dL Calcium 8.6 L (8.7-10.3) mg/dL ALT 74 H (4-49) U/L Total Protein 6.0 L (6.3-8.2) g/dL U Marijuana (THC) Screen (NotDetected)
[2025-02-06 12:08] LABS: Glucose,Whole Blood 164 mg/dL (70-110)
[2025-02-06] MEDS: INSULIN LISPRO (HumaLOG) 100 UNIT/ML 10 mL VL SQ SCH (13:13)
[2025-02-06] MEDS: DEXAMETHASONE SOD PHOSPHATE 4 MG/ML 1 ML VIAL IVP SCH (13:13)
--- NOTE | 2025-02-06 15:27 | P.CONS ---
History of Present Illness - Reason for Consult Consult date: 02/06/25 Lethargy, inability to care for self Requesting physician: Jamal Rose - Chief Complaint "My keeps track of everything" - History of Present Illness Mr. 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 He presents with a 2.6 cm right frontal lobe lesion and a 5 mm left frontal lobe lesion. He underwent a course of SRS to both lesions (30 Gy in 5 fractions to the larger lesion and 20 Gy in 1 fraction to the smaller lesion), completing treatment on 01/27/2025. Since completing radiation, he notes that he was having recurrent falls and it was becoming more difficult for his to care for him. He had weaned off Decadron. He accordingly presented to the , and CT brain on 02/05/2025 demonstrated essentially stable findings. He was started on Decadron 4 mg every 6 hours with Protonix. Today, he notes that he does not feel stronger, but has been lying in bed all day. He appears moderately confused. Review of Systems as per HPI Past Medical History Past Medical History: Coronary Artery Disease (CAD), Cancer Additional Past Medical History / Comment(s): Hx lung CA and brain tumor recently under went Stereotactic body radiation x5 treatments. History of Any Multi-Drug Resistant Organisms: None Reported Past Surgical History: No Surgical Hx Reported Past Anesthesia/Blood Transfusion Reactions: No Reported Reaction Past Psychological History: No Psychological Hx Reported Smoking Status: Former smoker Past Alcohol Use History: Rare Past Drug Use History: None Reported - Past Family History Father Family Medical History: Cancer (esophageal ) Additional Family Medical History / Comment(s): Esophageal cancer/bone cancer Medications and Allergies Home Medications Medication Instructions Recorded Confirmed Type No Known Home Medications 11/30/24 02/06/25 History Allergies Allergy/AdvReac Type Severity Reaction Status Date / Time No Known Allergies Allergy Verified 02/06/25 07:00 Physical Exam Vitals: Vital Signs Temp Pulse Pulse Resp BP BP Pulse Ox 02/06/25 12:30 97.6 F 73 16 164/68 99 02/06/25 08:11 97.9 F 74 16 178/76 99 02/06/25 06:57 97.6 F 73 20 163/78 99 02/06/25 05:00 88 20 170/70 97 02/06/25 00:29 76 18 176/85 98 02/05/25 22:52 77 18 167/76 99 02/05/25 20:28 75 18 173/78 97 02/05/25 16:27 98.0 F 90 18 154/73 99 Intake and Output 02/06/25 02/06/25 02/06/25 06:59 14:59 22:59 Intake Total 960 Output Total 600 Balance -600 960 Intake: Oral 960 Output: Urine 600 Other: Voiding Method Urinal # Voids 1 # Bowel Movements 1 1 Weight 72.575 kg - Constitutional confused, not oriented to date, unable to provide comprehensive history General appearance: no acute distress - Respiratory Respiratory: negative: prolonged inspiration, other - Psychiatric Psychiatric: appropriate affect Results CBC & Chem 7: 02/05/25 18:00 02/06/25 05:32 Labs: Abnormal Lab Results - Last 24 Hours (Table) 02/05/25 02/05/25 02/05/25 Range/Units 18:00 18:00 18:00 RBC 4.10 L (4.40-5.60) 10*6/uL Hgb 12.0 L (13.0-17.0) g/dL Hct 34.7 L (39.6-50.0) % MPV 8.2 L (9.5-12.2) fL Immature Gran # 0.11 H (0.00-0.04) 10*3/uL Eosinophils # 0.01 L (0.04-0.35) 10*3/uL APTT 20.2 L (22.0-30.0) sec Sodium (137-145) mmol/L Chloride (98-107) mmol/L Carbon Dioxide (21.6-31.8) mmol/L Anion Gap (4.00-12.00) mmol/L Creatinine (0.66-1.25) mg/dL BUN/Creatinine Ratio (12.00-20.00) Ratio Glucose (70-110) mg/dL POC Glucose (mg/dL) (70-110) mg/dL Calcium (8.7-10.3) mg/dL ALT (4-49) U/L Total Protein (6.3-8.2) g/dL U Marijuana (THC) Screen Detected H (NotDetected) 02/05/25 02/06/2525 Range/Units 18:00 05:32 12:07 RBC (4.40-5.60) 10*6/uL Hgb (13.0-17.0) g/dL Hct (39.6-50.0) % MPV (9.5-12.2) fL Immature Gran # (0.00-0.04) 10*3/uL Eosinophils # (0.04-0.35) 10*3/uL APTT (22.0-30.0) sec Sodium 131 L 132 L (137-145) mmol/L Chloride 97 L (98-107) mmol/L Carbon Dioxide 21.1 L (21.6-31.8) mmol/L Anion Gap 14.90 H (4.00-12.00) mmol/L Creatinine 0.46 L (0.66-1.25) mg/dL BUN/Creatinine Ratio 25.50 H (12.00-20.00) Ratio Glucose 225 H (70-110) mg/dL POC Glucose (mg/dL) 164 H (70-110) mg/dL Calcium 8.6 L (8.7-10.3) mg/dL ALT 74 H (4-49) U/L Total Protein 6.0 L (6.3-8.2) g/dL U Marijuana (THC) Screen (NotDetected) Assessment and Plan Assessment: Mr. 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 He presents with a 2.6 cm right frontal lobe lesion and a 5 mm left frontal lobe lesion. He underwent a course of SRS to both lesions (30 Gy in 5 fractions to the larger lesion and 20 Gy in 1 fraction to the smaller lesion), completing treatment on 01/27/2025. Plan: The patient presents with acute confusion and generalized weakness. He completed SRS 1.5 weeks ago. I suspect that he has treatment-related vasogenic edema, and agree with high-dose Decadron. I think it is too early to repeat MRI brain at this time. However, should he not improve with steroids, this will be considered. Otherwise, I recommend supportive care. Chuy Johnston MD Radiation Oncology Time with Patient: Less than 30
[2025-02-06 16:40] LABS: Glucose,Whole Blood 153 mg/dL (70-110)
[2025-02-06 20:16] LABS: Glucose,Whole Blood 167 mg/dL (70-110)
--- NOTE | 2025-02-06 21:37 | P.CONS ---
History of Present Illness - Reason for Consult Consult date: 02/06/25 NSCLC, metastatic Requesting physician: Ye Kern - Chief Complaint weakness - History of Present Illness Mr. Borjas is a pleasant male pt of Dr. Nielsen who initially presented to [facility] in December 2024 with mental status changes noted by his , who also noted shuffling gait for about a year prior to his presentation. CT brain and then brain MRI which showed 2.6 x 2.3 x 2.2 cm right frontal lobe mass with dural extension,associated with vasogenic edema and 5 mm left frontal lobe lesion. CT CAP 12/21/2024 showed 9.8 x 7.1 cm RLL mass like consolidation, extends to right hilum with abrupt cut off of RLL brinchus, 1.5 cm right pre tracheal node, subcarinal nodes up to 1.7 cm and right hilar node up to 2.7 cm, 4 mm LLL nodule, mural thrombus in distal aorta. The patient was transferred to [facility], no surgical intervention felt needed for his brain mets. He had a bone scan on 12/26/2024 which was negative for bone mets. 12/26/2024 bronchoscopic biopsy of RLL was positive for adenocarcinoma of the lung. Liquid biopsy showed KRAS G12C mutation. Caris showed PDL-1 99%, KRAS G12C mutation, high TMB. He declined PET scan. He completed SBRT to solitary brain lesion on 01/27/2025. He was seen by Dr. Nielsen 01/31, still on steroid taper from SBRT. They discussed treatment options but, pt performance status was poor and it was felt that giving him a few weeks to recover and then reassess PS was reasonable. Patient is currently admitted to the hospital because of significant weakness, difficulty walking and falls. Patient knows that he is unsteady. He feels the weakness in his thighs. He was placed back on steroids in the emergency department. He has had no improvements in his weakness since admission. Patient denies fevers, nausea or vomiting, chest pain, unusual shortness of breath, incontinence of urine or stool, numbness or tingling in the lower extremities. Review of Systems 10 point ROS is neg except as stated in HPI Past Medical History Past Medical History: Coronary Artery Disease (CAD), Cancer Additional Past Medical History / Comment(s): Hx lung CA and brain tumor recently under went Stereotactic body radiation x5 treatments. History of Any Multi-Drug Resistant Organisms: None Reported Past Surgical History: No Surgical Hx Reported Past Psychological History: No Psychological Hx Reported Smoking Status: Former smoker Past Alcohol Use History: Rare Past Drug Use History: None Reported - Past Family History Father Family Medical History: Cancer (esophageal ) Medications and Allergies Home Medications Medication Instructions Recorded Confirmed Type No Known Home Medications 11/30/24 02/06/25 History Allergies Allergy/AdvReac Type Severity Reaction Status Date / Time No Known Allergies Allergy Verified 02/06/25 07:00 Physical Exam Vitals: Vital Signs Temp Pulse Pulse Resp BP BP Pulse Ox 02/06/25 08:11 97.9 F 74 16 178/76 99 02/06/25 06:57 97.6 F 73 20 163/78 99 02/06/25 05:00 88 20 170/70 97 02/06/25 00:29 76 18 176/85 98 02/05/25 22:52 77 18 167/76 99 02/05/25 20:28 75 18 173/78 97 02/05/25 16:27 98.0 F 90 18 154/73 99 Intake and Output 02/05/25 02/06/25 02/06/25 22:59 06:59 14:59 Output Total 600 Balance -600 Output: Urine 600 Other: # Voids 1 # Bowel Movements 1 Weight 72.575 kg - Constitutional General appearance: cooperative, no acute distress, thin - EENT Eyes: anicteric sclerae, EOMI ENT: hearing grossly normal, normal oropharynx - Neck Neck: no lymphadenopathy - Respiratory Respiratory: bilateral: CTA - Cardiovascular Rhythm: regular Heart sounds: normal: S1, S2 Abnormal Heart Sounds: no systolic murmur, no diastolic murmur, no rub, no S3 Gallop, no S4 Gallop, no click, no other leg Peripheral Edema: bilateral: None - Gastrointestinal General gastrointestinal: no absent bowel sounds, no decreased bowel sounds, no distended, no hepatomegaly, no hyperactive bowel sounds, normal bowel sounds, no organomegaly, no rigid, no scaphoid, soft, no splenomegaly, no tenderness, no umbilical hernia, no ventral hernia - Integumentary Integumentary: normal - Neurologic Neurologic: CNII-XII intact - Musculoskeletal Musculoskeletal: generalized weakness - Psychiatric Psychiatric: A&O x's 3, appropriate affect, intact judgment & insight (most of the time-forgetful) Results CBC & Chem 7: 02/05/25 18:00 02/06/25 05:32 Labs: Abnormal Lab Results - Last 24 Hours (Table) 02/05/25 02/05/25 02/05/25 Range/Units 18:00 18:00 18:00 RBC 4.10 L (4.40-5.60) 10*6/uL Hgb 12.0 L (13.0-17.0) g/dL Hct 34.7 L (39.6-50.0) % MPV 8.2 L (9.5-12.2) fL Immature Gran # 0.11 H (0.00-0.04) 10*3/uL Eosinophils # 0.01 L (0.04-0.35) 10*3/uL APTT 20.2 L (22.0-30.0) sec Sodium (137-145) mmol/L Chloride (98-107) mmol/L Carbon Dioxide (21.6-31.8) mmol/L Anion Gap (4.00-12.00) mmol/L Creatinine (0.66-1.25) mg/dL BUN/Creatinine Ratio (12.00-20.00) Ratio Glucose (70-110) mg/dL Calcium (8.7-10.3) mg/dL ALT (4-49) U/L Total Protein (6.3-8.2) g/dL U Marijuana (THC) Screen Detected H (NotDetected) 02/05/25 02/06/25 Range/Units 18:00 05:32 RBC (4.40-5.60) 10*6/uL Hgb (13.0-17.0) g/dL Hct (39.6-50.0) % MPV (9.5-12.2) fL Immature Gran # (0.00-0.04) 10*3/uL Eosinophils # (0.04-0.35) 10*3/uL APTT (22.0-30.0) sec Sodium 131 L 132 L (137-145) mmol/L Chloride 97 L (98-107) mmol/L Carbon Dioxide 21.1 L (21.6-31.8) mmol/L Anion Gap 14.90 H (4.00-12.00) mmol/L Creatinine 0.46 L (0.66-1.25) mg/dL BUN/Creatinine Ratio 25.50 H (12.00-20.00) Ratio Glucose 225 H (70-110) mg/dL Calcium 8.6 L (8.7-10.3) mg/dL ALT 74 H (4-49) U/L Total Protein 6.0 L (6.3-8.2) g/dL U Marijuana (THC) Screen (NotDetected) Chest x-ray: report reviewed CT Scan - head: report reviewed Assessment and Plan (1) Weakness Current Visit: Yes Status: Acute Priority: High Code(s): R53.1 - WEAKNESS SNOMED Code(s): 03464830 (2) Non-small cell lung cancer (NSCLC) Current Visit: Yes Status: Acute Code(s): C34.90 - MALIGNANT NEOPLASM OF UNSP PART OF UNSP BRONCHUS OR LUNG SNOMED Code(s): 491836269 (3) Metastasis to brain Current Visit: Yes Status: Acute Code(s): C79.31 - SECONDARY MALIGNANT NEOPLASM OF BRAIN SNOMED Code(s): 34006734 Plan: Weakness - Multifactorial including recent treatment of brain mets. - Patient was recently seen by Dr. Nielsen in the office to discuss systemic treatment options. At that time patient's performance status was poor, recommendations were for recovery status post brain radiation to see if patient's performance status can improve. - Orders have been placed for occupational therapy and physical therapy. Pending their assessment and recommendations Metastatic non-small cell lung cancer to the brain - Diagnosis and treatment this far as reported in HPI - Patient was just seen by Medical Oncologist late last week for discussion of treatment options. With a high TMB and PD-L1 immunotherapy is an option for t reatment. Was felt that patient's performance status needed to improve to go through with the same. - Pending patient's recovery and rehabilitation. He will be reassessed by Dr. Nielsen in a few weeks to see if he is a candidate for treatment -Radiation Oncology consulted for assessment recommendations for pt post radiation. Doctor attests: I performed a history and physical examination of this patient, developed impression and plan of care. Discussed with dictator. I agree with dictators note, documented as a scribe.
[2025-02-07] MEDS: LORazepam 1 MG/0.5 ML VIAL IV PRN (00:08)
[2025-02-07 07:47] LABS: Glucose,Whole Blood 122 mg/dL (70-110)
[2025-02-07 08:33] LABS: BUN/Creat Ratio 39.75 Ratio (12.00-20.00); Blood Urea Nitrogen 15.9 mg/dL (9.0-27.0); Calcium 8.8 mg/dL (8.7-10.3); Carbon Dioxide 25.3 mmol/L (21.6-31.8); Chloride 100 mmol/L (96-109); Glucose 138 mg/dL (70-110); Potassium 4.8 mmol/L (3.5-5.5); Sodium 134 mmol/L (135-145)
--- NOTE | 2025-02-07 11:12 | P.PN ---
Subjective Progress Note Date: 02/07/25 Hospital Course: A 69-year-old male with past medical history of recent diagnosis of lung cancer with metastasis to the brain, recently completed radiation therapy last treatment last Thursday per patient, has been having progressive generalized body weakness, lethargy, frequent falls, unable to take care of him as well as having troubles taking care of him. On arrival patient was afebrile with elevated blood pressure in 170s, satting well on room air. Blood work revealed normal WBC, stable hemoglobin of 12, sodium 131, potassium normal, creatinine 0.46, glucose 90, AST normal, ALT 74, troponin negative, UA negative, UDS positive for THC. CT brain showed right frontal lesion 2.1 cm, previously measuring 2 cm with surrounding vasogenic edema and right to left shift of 10 mm as was noted previously with subfalcine herniation unchanged from prior study, additional lesion within the high left frontal lobe sub-5 mm with a small area of surrounding vasogenic edema. He was admitted for further evaluation, oncology consulted. Neurology initially consulted as well, discussed with Dr. Gonsales, patient had recent brain MRI, known metastatic disease, already on Decadron and Keppra, no additional interventions from neurology standpoint , neurology consult was discontinued, neurology to be contacted as needed. 5/5: Feels somewhat better, still generally weak, was able to keep food down, sodium went up to 132. Decadron increased to 4 mg every 6 hours as needed, started on Keppra 5 mg IV every 12 hours, oncology consult pending 5/6 seen and examined at bedside, no acute event overnight, patient is confused but alert and oriented to self and place, he thinks that he is drinks is getting better. Radiation oncology was consulted by oncology, recommended to continue high-dose Decadron for now. Pertinent positives and negatives as discussed above, a complete review of systems was performed and all other systems are negative. Vitals Signs Reviewed. General: [nontoxic], [no distress], [appears at stated age] Derm: [warm], [dry] Head: [atraumatic], [normocephalic], [symmetric] Eyes: [EOMI], [no lid lag], [anicteric sclera] Mouth: [no lip lesion], [mucus membranes moist] Cardiovascular: [S1S2 reg], [no murmur] Lungs: [CTA bilateral], [no rhonchi, no rales] , [no accessory muscle use] Abdominal: [soft], [ nontender to palpation], [no guarding], [no appreciable organomegaly] Ext: [no gross muscle atrophy], [no edema], [no contractures] Neuro: [ CN II-XI grossly intact], [strength 4 out of 5 in bilateral lower extremities, 5/5 in bilateral upper extremities Psych: [Alert], [oriented], [confused Assessment and Plan: Generalized weakness and recurrent falls secondary to brain mets, vasogenic edema and midline shift Lung cancer with brain mets - Oncology consulted, appreciate recommendations -Radiation oncology consulted, appreciate recommendations - Continue Decadron 4 mg IV every 6 hours, continue Keppra 500 mg IV twice daily -Accu-Cheks, SSI for steroid-induced hyperglycemia - Fall precautions, seizure precautions - PT OT, social work consulted Acute hyponatremia - Sodium 131 on admission, started on normal saline at 75 cc, improved to 134, continue IVF, monitor BMP daily I have reviewed the following planning consultant notes: Oncology and radiation oncology notes I have reviewed the results of the following tests: CBC, BMP I have ordered the following tests: Daily BMP to monitor for hyponatremia I have discussed the care of this patient with the following independent historian: RN regarding management I have independently interpreted the following test below: As above I have discussed the management of this patient with the following physician: DVT ppx: Lovenox Code status: Full code Anticipated discharge place: [facility] Anticipated discharge time: TBD Objective - Vital Signs Vital signs: Vital Signs Temp 97.5 F L 02/07/25 07:59 Pulse 61 02/07/25 07:59 Resp 18 02/07/25 07:59 BP 169/77 02/07/25 07:59 Pulse Ox 100 02/07/25 07:59 FiO2 Intake & Output 02/06/25 02/07/25 02/07/25 18:59 06:59 18:59 Intake Total 960 222 Output Total 200 Balance 960 22 Weight 72.575 kg Intake: Oral 960 222 Output: Urine 200 Other: Voiding Method Urinal Urinal Urinal Diaper Diaper # Voids 2 # Bowel Movements 1 - Labs CBC & Chem 7: 02/05/25 18:00 02/07/25 05:11 Labs: Abnormal Lab Results - Last 24 Hours (Table) 02/06/25 02/06/25 02/06/25 Range/Units 12:07 16:39 20:08 Sodium (135-145) mmol/L Creatinine (0.6-1.5) mg/dL BUN/Creatinine Ratio (12.00-20.00) Ratio Glucose (70-110) mg/dL POC Glucose (mg/dL) 164 H 153 H 167 H (70-110) mg/dL Hemoglobin A1c (<=6.0) % 02/07/25 02/07/25 02/07/25 Range/Units 05:11 05:11 07:38 Sodium 134 L (135-145) mmol/L Creatinine 0.4 L (0.6-1.5) mg/dL BUN/Creatinine Ratio 39.75 H (12.00-20.00) Ratio Glucose 138 H (70-110) mg/dL POC Glucose (mg/dL) 122 H (70-110) mg/dL Hemoglobin A1c 6.4 H (<=6.0) %
[2025-02-07 12:03] LABS: Glucose,Whole Blood 164 mg/dL (70-110)
[2025-02-07 17:36] LABS: Glucose,Whole Blood 127 mg/dL (70-110)
[2025-02-07 21:03] LABS: Glucose,Whole Blood 141 mg/dL (70-110)
--- NOTE | 2025-02-07 21:04 | P.PN ---
Subjective Progress Note Date: 02/07/25 Principal diagnosis: AMS, weakness. Hx of NSCLC, metastatic to brain In f/u today pt reports no significant changes in how he feels. He has strength in the lower extremities but, it doesn't last long, at the end of our conversation he was talking about installation of new windows and bathrooms. Denies JACKSON, vision changes, N,V or pain. Objective - Vital Signs Vital signs: Vital Signs Temp 97.7 F 02/07/25 14:00 Pulse 71 02/07/25 14:00 Resp 18 02/07/25 14:00 BP 160/64 02/07/25 14:00 Pulse Ox 98 02/07/25 14:00 FiO2 Intake & Output 02/06/25 02/07/25 02/07/25 18:59 06:59 18:59 Intake Total 960 222 Output Total 200 Balance 960 22 Weight 72.575 kg Intake: Oral 960 222 Output: Urine 200 Other: Voiding Method Urinal Urinal Urinal Diaper Diaper # Voids 2 # Bowel Movements 1 - Constitutional General appearance: Present: cooperative, no acute distress, thin - EENT Eyes: Present: anicteric sclerae, EOMI ENT: Present: hearing grossly normal - Respiratory Respiratory: bilateral: CTA - Cardiovascular Rhythm: regular Heart sounds: normal: S1, S2 Abnormal Heart Sounds: Absent: systolic murmur, diastolic murmur, rub, S3 Gallop, S4 Gallop, click, other - Peripheral edema leg Peripheral Edema: bilateral: None - Gastrointestinal General gastrointestinal: Present: normal bowel sounds, soft - Neurologic Neurologic: Present: CNII-XII intact - Musculoskeletal Musculoskeletal: Present: generalized weakness, strength equal bilaterally - Psychiatric Psychiatric Comment(s): A&OX2, maybe 3 if he thinks about it - Labs CBC & Chem 7: 02/05/25 18:00 02/07/25 05:11 Labs: Abnormal Lab Results - Last 24 Hours (Table) 02/06/25 02/06/25 02/07/25 Range/Units 16:39 20:08 05:11 Sodium (135-145) mmol/L Creatinine (0.6-1.5) mg/dL BUN/Creatinine Ratio (12.00-20.00) Ratio Glucose (70-110) mg/dL POC Glucose (mg/dL) 153 H 167 H (70-110) mg/dL Hemoglobin A1c 6.4 H (<=6.0) % 02/07/25 02/07/25 02/07/25 Range/Units 05:11 07:38 12:01 Sodium 134 L (135-145) mmol/L Creatinine 0.4 L (0.6-1.5) mg/dL BUN/Creatinine Ratio 39.75 H (12.00-20.00) Ratio Glucose 138 H (70-110) mg/dL POC Glucose (mg/dL) 122 H 164 H (70-110) mg/dL Hemoglobin A1c (<=6.0) % Assessment and Plan (1) Weakness Current Visit: Yes Status: Acute Priority: High Code(s): R53.1 - WEAKNESS SNOMED Code(s): 18423312 (2) Non-small cell lung cancer (NSCLC) Current Visit: Yes Status: Acute Priority: High Code(s): C34.90 - MALIGNANT NEOPLASM OF UNSP PART OF UNSP BRONCHUS OR LUNG SNOMED Code(s): 772579078 (3) Metastasis to brain Current Visit: Yes Status: Acute Priority: Medium Code(s): C79.31 - SECONDARY MALIGNANT NEOPLASM OF BRAIN SNOMED Code(s): 32963809 Plan: Weakness - Multifactorial including recent treatment of brain mets. - Patient was recently seen by Dr. Nielsen in the office to discuss systemic treatment options. At that time patient's performance status was poor, recommendations were for recovery status post brain radiation to see if patient's performance status can improve. - Orders have been placed for occupational therapy and physical therapy. 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 With a high TMB and PD-L1 immunotherapy is an option for treatment. Was felt that patient's performance status needed to improve to go through with the same. - Pending patient's recovery and rehabilitation. He will be reassessed by Dr. Nielsen in a few weeks to see if he is a candidate for treatment -Radiation Oncology consult and recommendations reviewed. Pt cont on steroids. Will see how he does.
[2025-02-08 07:23] LABS: Glucose,Whole Blood 170 mg/dL (70-110)
[2025-02-08 08:20] LABS: Blood Urea Nitrogen 20.5 mg/dL (9.0-27.0); Calcium 8.9 mg/dL (8.7-10.3); Carbon Dioxide 26.5 mmol/L (21.6-31.8); Chloride 101 mmol/L (96-109); Glucose 118 mg/dL (70-110); Potassium 4.8 mmol/L (3.5-5.5); Sodium 136 mmol/L (135-145)
[2025-02-08 08:37] LABS: Basophils # (A) 0 X 10*3/uL (0.00-0.10); Basophils % (A) 0 %; Eosinophils # (A) 0 X 10*3/uL (0.04-0.35); Eosinophils % (A) 0 %; HCT 31.6 % (39.6-50.0); HGB 10.4 g/dL (13.0-17.0); Lymphocytes # (A) 1.03 X 10*3/uL (0.90-5.00); Lymphocytes % (A) 17.3 %; MCH 28.7 pg (27.0-32.0); MCHC 32.9 g/dL (32.0-37.0); MCV 87.1 FL (80.0-97.0); Mean Platelet Volume 8.8 FL (9.5-12.2); Monocytes % (A) 8.4 %; NRBC Per 100 WBC 0 X 10*3/uL (0.00-0.01); Neutrophils # (A) 4.39 X 10*3/uL (1.80-7.70); Neutrophils % (A) 73.5 %; Platelet Count 198 X 10*3/uL (140-440); RBC 3.63 X 10*6/uL (4.40-5.60); RDW 20.7 % (11.5-14.5); WBC 5.97 X 10*3/uL (4.50-10.00)
[2025-02-08] MEDS: NIFEdipine XL 30 MG TAB.ER.24 PO SCH (09:56)
[2025-02-08 12:29] LABS: Glucose,Whole Blood 96 mg/dL (70-110)
--- NOTE | 2025-02-08 16:36 | P.PN ---
Subjective Progress Note Date: 02/08/25 Hospital Course: A 69-year-old male with past medical history of recent diagnosis of lung cancer with metastasis to the brain, recently completed radiation therapy last treatment last Thursday per patient, has been having progressive generalized body weakness, lethargy, frequent falls, unable to take care of him as well as having troubles taking care of him. On arrival patient was afebrile with elevated blood pressure in 170s, satting well on room air. Blood work revealed normal WBC, stable hemoglobin of 12, sodium 131, potassium normal, creatinine 0.46, glucose 90, AST normal, ALT 74, troponin negative, UA negative, UDS positive for THC. CT brain showed right frontal lesion 2.1 cm, previously measuring 2 cm with surrounding vasogenic edema and right to left shift of 10 mm as was noted previously with subfalcine herniation unchanged from prior study, additional lesion within the high left frontal lobe sub-5 mm with a small area of surrounding vasogenic edema. He was admitted for further evaluation, oncology consulted. Neurology initially consulted as well, discussed with Dr. Gonsales, patient had recent brain MRI, known metastatic disease, already on Decadron and Keppra, no additional interventions from neurology standpoint , neurology consult was discontinued, neurology to be contacted as needed. 02/06: Feels somewhat better, still generally weak, was able to keep food down, sodium went up to 132. Decadron increased to 4 mg every 6 hours as needed, started on Keppra 5 mg IV every 12 hours, oncology consult pending 02/07 seen and examined at bedside, no acute event overnight, patient is confused but alert and oriented to self and place, he thinks that he is drinks is getting better. Radiation oncology was consulted by oncology, recommended to continue high-dose Decadron for now. 02/08: No acute events overnight, no significant changes, discussed with oncology, Decadron switched to oral dexamethasone, Keppra switched to oral, plan to discharge on 02/09. Nifedipine ordered for blood pressure control Pertinent positives and negatives as discussed above, a complete review of systems was performed and all other systems are negative. Vitals Signs Reviewed. General: , [no distress], [appears at stated age] Derm: [warm], [dry] Head: [atraumatic], [normocephalic], [symmetric] Eyes: [EOMI], [no lid lag], [anicteric sclera] Mouth: [no lip lesion], [mucus membranes moist] Cardiovascular: [S1S2 reg], [no murmur] Lungs: [CTA bilateral], [no rhonchi, no rales] , [no accessory muscle use] Abdominal: [soft], [ nontender to palpation], [no guarding], [no appreciable organomegaly] Ext: [no gross muscle atrophy], [no edema], [no contractures] Neuro: [ CN II-XI grossly intact], [strength 4 out of 5 in bilateral lower extremities, 5/5 in bilateral upper extremities Psych: [Alert], [oriented], [confused Assessment and Plan: Generalized weakness and recurrent falls secondary to brain mets, vasogenic edema and midline shift Lung cancer with brain mets - Oncology consulted, appreciate recommendations -Radiation oncology consulted, appreciate recommendations -IV Decadron switched to oral dexamethasone 4 mg p.o. every 6 hours, Keppra oral 500 mg every 12 -Accu-Cheks, SSI for steroid-induced hyperglycemia - Fall precautions, seizure precautions - PT OT, social work consulted Elevated blood pressure readings -Blood pressure up to 198/77, started on Procardia 30 daily Acute hyponatremia - Sodium 131 on admission, started on normal saline at 75 cc, improved to 136, discontinue IVF, monitor BMP daily I have reviewed the following regional sales consultant notes: Oncology I have reviewed the results of the following tests: CBC, BMP I have ordered the following tests: Daily BMP to monitor for hyponatremia I have discussed the care of this patient with the following independent historian: RN regarding management I have independently interpreted the following test below: As above I have discussed the management of this patient with the following physician: Lydia Arroyo NP, IV steroids changed to p.o., plan to discharge on 02/09 to [facility] DVT ppx: Lovenox Code status: Full code Anticipated discharge place: [facility] Anticipated discharge time: 02/09 Objective - Vital Signs Vital signs: Vital Signs Temp 98.2 F 02/08/25 12:24 Pulse 51 L 02/08/25 12:24 Resp 18 02/08/25 12:24 BP 182/71 02/08/25 12:24 Pulse Ox 97 02/08/25 12:24 FiO2 Intake & Output 02/07/25 02/08/25 02/08/25 18:59 06:59 18:59 Other: Voiding Method Urinal Urinal Toilet Diaper Diaper Diaper # Voids 1 2 - Labs CBC & Chem 7: 02/08/25 04:24 02/08/25 04:24 Labs: Abnormal Lab Results - Last 24 Hours (Table) 02/07/25 02/07/25 02/08/25 Range/Units 17:32 21:00 04:24 RBC 3.63 L (4.40-5.60) X 10*6/uL Hgb 10.4 L (13.0-17.0) g/dL Hct 31.6 L (39.6-50.0) % RDW 20.7 H (11.5-14.5) % MPV 8.8 L (9.5-12.2) FL Immature Gran # 0.05 H (0.00-0.04) X 10*3/uL Eosinophils # 0 L (0.04-0.35) X 10*3/uL Creatinine (0.6-1.5) mg/dL BUN/Creatinine Ratio (12.00-20.00) Ratio Glucose (70-110) mg/dL POC Glucose (mg/dL) 127 H 141 H (70-110) mg/dL 02/08/25 02/08/25 Range/Units 04:24 07:12 RBC (4.40-5.60) X 10*6/uL Hgb (13.0-17.0) g/dL Hct (39.6-50.0) % RDW (11.5-14.5) % MPV (9.5-12.2) FL Immature Gran # (0.00-0.04) X 10*3/uL Eosinophils # (0.04-0.35) X 10*3/uL Creatinine 0.5 L (0.6-1.5) mg/dL BUN/Creatinine Ratio 41.00 H (12.00-20.00) Ratio Glucose 118 H (70-110) mg/dL POC Glucose (mg/dL) 170 H (70-110) mg/dL
--- NOTE | 2025-02-08 16:39 | P.PN ---
Subjective Progress Note Date: 02/08/25 Principal diagnosis: AMS, weakness. Hx of NSCLC, metastatic to brain In f/u today pt is still confused, reports he gets aggressive at times. He did get up with stand by assist and walker and got to the bathroom. No significant changes in how he feels. reports auditory hallucinations, pt denies any neurological symptoms or pain. Objective - Vital Signs Vital signs: Vital Signs Temp 98.2 F 02/08/25 12:24 Pulse 51 L 02/08/25 12:24 Resp 18 02/08/25 12:24 BP 182/71 02/08/25 12:24 Pulse Ox 97 02/08/25 12:24 FiO2 Intake & Output 02/07/25 02/08/25 02/08/25 18:59 06:59 18:59 Other: Voiding Method Urinal Urinal Toilet Diaper Diaper Diaper # Voids 1 2 - Constitutional General appearance: Present: cooperative, no acute distress, thin - EENT Eyes: Present: anicteric sclerae, EOMI ENT: Present: hearing grossly normal - Respiratory Details: resp unlabored - Cardiovascular Details: skin warm, well perfused - Peripheral edema leg Peripheral Edema: bilateral: None - Neurologic Neurologic: Present: CNII-XII intact (grossly) - Musculoskeletal Musculoskeletal: Present: generalized weakness, strength equal bilaterally - Psychiatric Psychiatric Comment(s): A&O x 2, can answer some questions appropriately, other he cannot, he does have confused conversation at time - Labs CBC & Chem 7: 02/08/25 04:24 02/08/25 04:24 Labs: Abnormal Lab Results - Last 24 Hours (Table) 02/07/25 02/07/25 02/08/25 Range/Units 17:32 21:00 04:24 RBC 3.63 L (4.40-5.60) X 10*6/uL Hgb 10.4 L (13.0-17.0) g/dL Hct 31.6 L (39.6-50.0) % RDW 20.7 H (11.5-14.5) % MPV 8.8 L (9.5-12.2) FL Immature Gran # 0.05 H (0.00-0.04) X 10*3/uL Eosinophils # 0 L (0.04-0.35) X 10*3/uL Creatinine (0.6-1.5) mg/dL BUN/Creatinine Ratio (12.00-20.00) Ratio Glucose (70-110) mg/dL POC Glucose (mg/dL) 127 H 141 H (70-110) mg/dL 02/08/25 02/08/25 Range/Units 04:24 07:12 RBC (4.40-5.60) X 10*6/uL Hgb (13.0-17.0) g/dL Hct (39.6-50.0) % RDW (11.5-14.5) % MPV (9.5-12.2) FL Immature Gran # (0.00-0.04) X 10*3/uL Eosinophils # (0.04-0.35) X 10*3/uL Creatinine 0.5 L (0.6-1.5) mg/dL BUN/Creatinine Ratio 41.00 H (12.00-20.00) Ratio Glucose 118 H (70-110) mg/dL POC Glucose (mg/dL) 170 H (70-110) mg/dL Assessment and Plan (1) Weakness Current Visit: Yes Status: Acute Priority: High Code(s): R53.1 - WEAKNESS SNOMED Code(s): 61949369 (2) Non-small cell lung cancer (NSCLC) Current Visit: Yes Status: Acute Priority: High Code(s): C34.90 - MALIGNANT NEOPLASM OF UNSP PART OF UNSP BRONCHUS OR LUNG SNOMED Code(s): 854862568 (3) Metastasis to brain Current Visit: Yes Status: Acute Priority: Medium Code(s): C79.31 - SECONDARY MALIGNANT NEOPLASM OF BRAIN SNOMED Code(s): 32884008 Plan: Weakness - Multifactorial including recent treatment of brain mets. - Patient was recently seen by Dr. Nielsen in the office to discuss systemic treatment options. At that time patient's performance status was poor, recommendations were for recovery status post brain radiation to see if patient's performance status can improve. - Orders have been placed for occupational therapy and physical therapy. 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 With a high TMB and PD-L1 immunotherapy is an option for treatment. Was felt that patient's performance status needed to improve to go through with the same. - Pending patient's recovery and rehabilitation. He will be reassessed by Dr. Nielsen in a few weeks to see if he is a candidate for treatment -Radiation Oncology consult and recommendations reviewed. Steroid taper planned.
[2025-02-08 17:19] LABS: Glucose,Whole Blood 126 mg/dL (70-110)
[2025-02-08] MEDS: dexAMETHasone 4 MG TAB PO SCH (18:23)
[2025-02-08 20:06] LABS: Glucose,Whole Blood 137 mg/dL (70-110)
[2025-02-08] MEDS: levETIRAcetam 500 MG TAB PO SCH (21:27)
[2025-02-09 07:14] LABS: Glucose,Whole Blood 115 mg/dL (70-110)
[2025-02-09 12:30] LABS: Glucose,Whole Blood 120 mg/dL (70-110)
--- NOTE | 2025-02-09 15:17 | P.PN ---
Subjective Progress Note Date: 02/09/25 Hospital Course: A 69-year-old male with past medical history of recent diagnosis of lung cancer with metastasis to the brain, recently completed radiation therapy last treatment last Thursday per patient, has been having progressive generalized body weakness, lethargy, frequent falls, unable to take care of him as well as having troubles taking care of him. On arrival patient was afebrile with elevated blood pressure in 170s, satting well on room air. Blood work revealed normal WBC, stable hemoglobin of 12, sodium 131, potassium normal, creatinine 0.46, glucose 90, AST normal, ALT 74, troponin negative, UA negative, UDS positive for THC. CT brain showed right frontal lesion 2.1 cm, previously measuring 2 cm with surrounding vasogenic edema and right to left shift of 10 mm as was noted previously with subfalcine herniation unchanged from prior study, additional lesion within the high left frontal lobe sub-5 mm with a small area of surrounding vasogenic edema. He was admitted for further evaluation, oncology consulted. Neurology initially consulted as well, discussed with Dr. Gonsales, patient had recent brain MRI, known metastatic disease, already on Decadron and Keppra, no additional interventions from neurology standpoint , neurology consult was discontinued, neurology to be contacted as needed. 02/06: Feels somewhat better, still generally weak, was able to keep food down, sodium went up to 132. Decadron increased to 4 mg every 6 hours as needed, started on Keppra 5 mg IV every 12 hours, oncology consult pending 02/07 seen and examined at bedside, no acute event overnight, patient is confused but alert and oriented to self and place, he thinks that he is drinks is getting better. Radiation oncology was consulted by oncology, recommended to continue high-dose Decadron for now. 02/08: No acute events overnight, no significant changes, discussed with oncology, Decadron switched to oral dexamethasone, Keppra switched to oral, plan to discharge on 02/09. Nifedipine ordered for blood pressure control 02/09: Seen examined at bedside, no new complaints, no improvements in strength, states that it is time for him to move to rehab, no beds available today, will plan for tomorrow Pertinent positives and negatives as discussed above, a complete review of systems was performed and all other systems are negative. Vitals Signs Reviewed. General: , [no distress], [appears at stated age] Derm: [warm], [dry] Head: [atraumatic], [normocephalic], [symmetric] Eyes: [EOMI], [no lid lag], [anicteric sclera] Mouth: [no lip lesion], [mucus membranes moist] Cardiovascular: [S1S2 reg], [no murmur] Lungs: [CTA bilateral], [no rhonchi, no rales] , [no accessory muscle use] Abdominal: [soft], [ nontender to palpation], [no guarding], [no appreciable organomegaly] Ext: [no gross muscle atrophy], [no edema], [no contractures] Neuro: [ CN II-XI grossly intact], [strength 4 out of 5 in bilateral lower extremities, 5/5 in bilateral upper extremities Psych: [Alert], [oriented], [confused Assessment and Plan: Generalized weakness and recurrent falls secondary to brain mets, vasogenic edema and midline shift Lung cancer with brain mets - Oncology consulted, appreciate recommendations -Radiation oncology consulted, appreciate recommendations -IV Decadron switched to oral dexamethasone 4 mg p.o. every 6 hours, Keppra oral 500 mg every 12 -Accu-Cheks, SSI for steroid-induced hyperglycemia - Fall precautions, seizure precautions - PT OT, social work consulted Elevated blood pressure readings -Blood pressure up to 198/77, started on Procardia 30 daily Acute hyponatremia - Sodium 131 on admission, started on normal saline at 75 cc, improved to 136, discontinue IVF, monitor BMP daily I have reviewed the following system sales consultant notes: Oncology I have reviewed the results of the following tests: I have ordered the following tests: I have discussed the care of this patient with the following independent historian: ALTAGRACIA, notified that patient is stable for discharge, no beds available today, plan to discharge tomorrow I have independently interpreted the following test below: As above I have discussed the management of this patient with the following physician: DVT ppx: Lovenox Code status: Full code Anticipated discharge place: [facility] Anticipated discharge time: 02/10 Objective - Vital Signs Vital signs: Vital Signs Temp 98 F 02/09/25 14:00 Pulse 79 02/09/25 14:00 Resp 20 02/09/25 14:00 BP 165/62 02/09/25 14:00 Pulse Ox 98 02/09/25 14:00 FiO2 Intake & Output 02/08/25 02/09/25 02/09/25 18:59 06:59 18:59 Intake Total 480 224 Balance 480 224 Intake: Oral 480 224 Other: Voiding Method Toilet Toilet Toilet Diaper Diaper Diaper # Voids 1 1 - Labs CBC & Chem 7: 02/08/25 04:24 02/08/25 04:24 Labs: Abnormal Lab Results - Last 24 Hours (Table) 02/08/25 02/08/25 02/09/25 Range/Units 17:12 20:05 07:13 POC Glucose (mg/dL) 126 H 137 H 115 H (70-110) mg/dL 02/09/25 Range/Units 12:23 POC Glucose (mg/dL) 120 H (70-110) mg/dL
[2025-02-09 17:14] LABS: Glucose,Whole Blood 130 mg/dL (70-110)
[2025-02-09 20:28] LABS: Glucose,Whole Blood 146 mg/dL (70-110)
[2025-02-10 07:33] LABS: Glucose,Whole Blood 110 mg/dL (70-110)
[2025-02-10] MEDS ORDERED: LABETALOL 5 MG/ML VIAL MDV IVP PRN (08:29)
--- NOTE | 2025-02-10 12:19 | P.DS ---
Providers Date of admission: 02/05/25 21:19 Attending physician: Yasemin Redd MD Consults: 02/05/25 21:16 Consult Physician Urgent Consulting Provider: Annalee Stinson Consult Reason/Comments: Lung cancer with brain mets Do you want consulting provider notified?: Yes 02/06/25 10:34 Consult Physician Urgent Consulting Provider: Chuy Johnston Consult Reason/Comments: Rebound vasogenic edema s/p XRT, possible new lesion on CT head? Do you want consulting provider notified?: Already Contacted [facility]: Discharge Diagnosis: Generalized weakness and recurrent falls secondary to brain mets, vasogenic edema and midline shift Lung cancer with brain mets Elevated blood pressure readings Acute hyponatremia, resolved Hospital Course: A 69-year-old male with past medical history of recent diagnosis of lung cancer with metastasis to the brain, recently completed radiation therapy last treatment last Thursday per patient, has been having progressive generalized body weakness, lethargy, frequent falls, unable to take care of him as well as having troubles taking care of him. On arrival patient was afebrile with elevated blood pressure in 170s, satting well on room air. Blood work revealed normal WBC, stable hemoglobin of 12, sodium 131, potassium normal, creatinine 0.46, glucose 90, AST normal, ALT 74, troponin negative, UA negative, UDS positive for THC. CT brain showed right frontal lesion 2.1 cm, previously measuring 2 cm with surrounding vasogenic edema and right to left shift of 10 mm as was noted previously with subfalcine herniation unchanged from prior study, additional lesion within the high left frontal lobe sub-5 mm with a small area of surrounding vasogenic edema. He was admitted for further evaluation, oncology consulted. Neurology initially consulted as well, discussed with Dr. Gonsales, patient had recent brain MRI, known metastatic disease, already on Decadron and Keppra, no additional interventions from neurology standpoint , neurology consult was discontinued, neurology to be contacted as needed. 5/5: Feels somewhat better, still generally weak, was able to keep food down, sodium went up to 132. Decadron increased to 4 mg every 6 hours as needed, started on Keppra 5 mg IV every 12 hours, oncology consult pending 6 seen and examined at bedside, no acute event overnight, patient is confused but alert and oriented to self and place, he thinks that he is drinks is getting better. Radiation oncology was consulted by oncology, recommended to continue high-dose Decadron for now. 02/08: No acute events overnight, no significant changes, discussed with oncology, Decadron switched to oral dexamethasone, Keppra switched to oral, plan to discharge on 02/09. Nifedipine ordered for blood pressure control. 02/10: Patient will be discharged in stable condition on 02/10/2025 to SNF. Provided with Decadron taper 30 days as discussed with oncology, patient to follow-up with PCP and oncology for discharge.Procardia XL increased to 60mg. Patient seen and examined at bedside. Vital signs reviewed and stable. General: , [no distress], [appears at stated age] Derm: [warm], [dry] Head: [atraumatic], [normocephalic], [symmetric] Eyes: [EOMI], [no lid lag], [anicteric sclera] Mouth: [no lip lesion], [mucus membranes moist] Cardiovascular: [S1S2 reg], [no murmur] Lungs: [CTA bilateral], [no rhonchi, no rales] , [no accessory muscle use] Abdominal: [soft], [ nontender to palpation], [no guarding], [no appreciable organomegaly] Ext: [no gross muscle atrophy], [no edema], [no contractures] Neuro: [ CN II-XI grossly intact], [strength 4 out of 5 in bilateral lower extremities, 5/5 in bilateral upper extremities Psych: [Alert], [oriented], [confused A total of 40 minutes of time were spent preparing this complex discharge summary. Patient was discharged on 02/10/2025. Plan - Discharge Summary Discharge Rx Participant: No New Discharge Prescriptions: New dexAMETHasone [Decadron] See Taper PO Q6HR #240 tablet NIFEdipine XL [Procardia XL] 60 mg PO DAILY #30 tab levETIRAcetam [Keppra] 500 mg PO Q12HR #60 tab Pantoprazole [Protonix] 40 mg PO AC-BRKFST #30 tab Discharge Medication List Pantoprazole [Protonix] 40 mg PO AC-BRKFST #30 tab 02/09/25 [Rx] dexAMETHasone [Decadron] See Taper PO Q6HR #240 tablet 02/09/25 [Rx] levETIRAcetam [Keppra] 500 mg PO Q12HR #60 tab 02/09/25 [Rx] NIFEdipine XL [Procardia XL] 60 mg PO DAILY #30 tab 02/10/25 [Rx] Follow up Appointment(s)/Referral(s): Viraj Araujo DO [Primary Care Provider] - 1-2 days Melanie Nielsen MD [STAFF PHYSICIAN] - 02/20/25 2:30 pm Patient Instructions/Handouts: Seizure/Epilepsy Discharge Instructions & Follow-Up Activity/Diet/Wound Care/Special Instructions: Please, follow-up with your primary care physician, oncology team. As we discussed, check your blood pressure daily, keep a log of the readings to discuss with your PCP. I started you on new blood pressure medication Discharge Disposition: TRANSFER TO SNF/ECF
[2025-02-10 12:20] LABS: Glucose,Whole Blood 113 mg/dL (70-110)
[2025-02-10 13:59] VITALS: BP 169/84; PULSE 68; RESP 18; TEMP 98.3
[2025-02-10 16:02] VITALS: BMI 22.3
== END 2025-02-10 17:27 | DRG 81 ==
LOC: EC 16:23 → 6NMEDSUR 21:19 → OBSVTOIN 21:19 → 5NMEDONC 21:29
PROVIDERS: ADMIT Internal Medicine; ATTEND Internal Medicine
DX: G93.6 Cerebral edema (principal); C79.31 Secondary malignant neoplasm of brain; C34.31 Malignant neoplasm of lower lobe, right bronchus or lung; I74.10 Embolism and thrombosis of unspecified parts of aorta; E87.1 Hypo-osmolality and hyponatremia; I25.10 Atherosclerotic heart disease of native coronary artery without angina pectoris; R29.6 Repeated falls; Z85.118 Personal history of other malignant neoplasm of bronchus and lung; Z87.891 Personal history of nicotine dependence; Z92.3 Personal history of irradiation; T38.0X5A Adverse effect of glucocorticoids and synthetic analogues, initial encounter; Z79.899 Other long term (current) drug therapy; X58.XXXA Exposure to other specified factors, initial encounter; R73.9 Hyperglycemia, unspecified; Z91.81 History of falling
CPT/HCPCS: 36415; 70450; 71046; 80048; 80053; 80306; 81003; 83036; 83605; 83735; 84484; 85025; 85610; 85730; 93005; 96361; 96374; 99285

== ENCOUNTER 2025-03-14 14:07 | Emergency (ER) | payer MEDICARE ==
[2025-03-14 14:22] VITALS: RESP 17; TEMP 98.1
[2025-03-14 15:34] LABS: Appearance,Urine Clear (Clear); Bilirubin,Urine Negative (Negative); Blood,Urine Negative (Negative); Color,Urine Colorless; Glucose,Urine (UA) Negative (Negative); Ketones,Urine Negative (Negative); Leukocyte Esterase,Urine Negative (Negative); Nitrite,Urine Negative (Negative); Protein,Urine Negative (Negative); Specific Gravity,Urine 1.012 (1.001-1.035); Urobilinogen,Urine <2.0 mg/dL (<2.0)
[2025-03-14 15:48] LABS: ALT 47 U/L (4-49); AST 27 U/L (17-59); African American GFR (CKD) >90 (>60 ml/min/1.73 sqM); Albumin 3.3 g/dL (3.5-5.0); Alkaline Phosphatase 104 U/L (38-126); Anion Gap 8 mmol/L; Blood Urea Nitrogen 14 mg/dL (9-20); Calcium 8.5 mg/dL (8.4-10.2); Carbon Dioxide 24 mmol/L (22-30); Chloride 96 mmol/L (98-107); Glucose 112 mg/dL (74-99); Magnesium 1.7 mg/dL (1.6-2.3); Non-African American GFR(CKD) >90 (>60 ml/min/1.73 sqM); Potassium 3.9 mmol/L (3.5-5.1); Sodium 128 mmol/L (137-145); Total Bilirubin 0.4 mg/dL (0.2-1.3); Total Protein 5.8 g/dL (6.3-8.2)
[2025-03-14 15:49] LABS: INR 0.9 (<1.2); Prothrombin Time 10.2 sec (10.0-12.5)
[2025-03-14] MEDS: ACETAMINOPHEN TAB 500 MG TAB PO STA (15:49)
[2025-03-14 15:52] LABS: Basophils # (A) 0.04 10*3/uL (0.00-0.10); Basophils % (A) 0.5 %; Eosinophils # (A) 0.02 10*3/uL (0.04-0.35); Eosinophils % (A) 0.3 %; HCT 32.2 % (39.6-50.0); HGB 11.1 g/dL (13.0-17.0); Lymphocytes % (A) 21.5 %; MCH 30.5 pg (27.0-32.0); MCHC 34.5 g/dL (32.0-37.0); MCV 88.5 fL (80.0-97.0); Mean Platelet Volume 8.3 fL (9.5-12.2); Monocytes # (A) 0.76 10*3/uL (0.20-1.00); Monocytes % (A) 9.6 %; Neutrophils # (A) 5.01 10*3/uL (1.80-7.70); Neutrophils % (A) 63.3 %; Platelet Count 188 10*3/uL (140-440); RBC 3.64 10*6/uL (4.40-5.60); RDW 22.4 % (11.5-14.5); WBC 7.91 10*3/uL (4.50-10.00)
--- NOTE | 2025-03-14 15:52 | XR ---
EXAMINATION TYPE: XR chest 2V DATE OF EXAM: 03/14/2025 3:46 PM COMPARISON: Chest radiographs from 02/05/2025, CT chest abdomen and pelvis 12/21/2024 TECHNIQUE: XR chest 2V Frontal and lateral views of the chest. CLINICAL INDICATION:Male, 69 years old with history of Weakness; FINDINGS: Lungs/Pleura: No pleural effusion or pneumothorax. There is again masslike consolidation along the ri ght medial lung base with silhouetting of the right heart border. Pulmonary vascularity: Unremarkable. Heart/mediastinum: Cardiomediastinal silhouette is stable with prominence of the right hilar region. Musculoskeletal: No acute osseous pathology. IMPRESSION: Redemonstration of right medial lung base masslike consolidation as seen on prior CT. There is again prominence of the right hilar region corresponding to adenopathy on prior CT. This is again concernin g for primary lung malignancy with hilar metastasis until proven otherwise. No new focal consolidatio n. [facility], , 03/14/2025 3:50 PM
--- NOTE | 2025-03-14 15:54 | ED ---
General Adult HPI - General Chief complaint: Weakness Stated complaint: weakness Time Seen by Provider: 03/14/25 14:39 Source: patient, EMS, RN notes reviewed, old records reviewed Mode of arrival: EMS Limitations: physical limitation - History of Present Illness Initial comments: 69-year-old male presenting for evaluation of weakness. Patient is currently being treated for metastatic cancer. Patient states he has had radiation treatments. No chemotherapy currently. Patient denies headache. Denies focal numbness or weakness. Denies chest pain or dyspnea. Denies abdominal pain nausea or vomiting. Denies dysuria. His chief and only complaint is generalized weakness. - Related Data Previous Rx's Medication Instructions Recorded Pantoprazole [Protonix] 40 mg PO AC-BRKFST #30 tab 02/09/25 dexAMETHasone [Decadron] See Taper PO Q6HR #240 tablet 02/09/25 levETIRAcetam [Keppra] 500 mg PO Q12HR #60 tab 02/09/25 NIFEdipine XL [Procardia XL] 60 mg PO DAILY #30 tab 02/10/25 Allergies Allergy/AdvReac Type Severity Reaction Status Date / Time No Known Allergies Allergy Verified 02/06/25 07:00 Review of Systems ROS Statement: Those systems with pertinent positive or pertinent negative responses have been documented in the HPI. ROS Other: All systems not noted in ROS Statement are negative. Past Medical History Past Medical History: Coronary Artery Disease (CAD), Cancer Additional Past Medical History / Comment(s): Hx lung CA and brain tumor recently under went Stereotactic body radiation x5 treatments. History of Any Multi-Drug Resistant Organisms: None Reported Past Surgical History: No Surgical Hx Reported Past Anesthesia/Blood Transfusion Reactions: No Reported Reaction Past Psychological History: No Psychological Hx Reported Smoking Status: Former smoker Past Alcohol Use History: Rare Past Drug Use History: Marijuana - Past Family History Father Family Medical History: Cancer (esophageal ) Additional Family Medical History / Comment(s): Esophageal cancer/bone cancer General Exam Limitations: physical limitation General appearance: alert, in no apparent distress Head exam: Present: atraumatic, normocephalic Eye exam: Present: normal appearance, PERRL ENT exam: Present: mucous membranes dry Neck exam: Present: normal inspection. Absent: tenderness, meningismus Respiratory exam: Present: normal lung sounds bilaterally. Absent: respiratory distress, wheezes Cardiovascular Exam: Present: regular rate, normal rhythm GI/Abdominal exam: Present: soft. Absent: distended, tenderness, guarding Extremities exam: Present: normal inspection, normal capillary refill Neurological exam: Present: alert, oriented X3, CN II-XII intact. Absent: motor sensory deficit Psychiatric exam: Present: flat affect Skin exam: Present: warm, dry, intact Course Vital Signs 03/14/25 14:10 Temperature 98.1 F Pulse Rate 85 Respiratory 17 Rate Blood Pressure 139/92 O2 Sat by Pulse 92 L Oximetry Medical Decision Making - Medical Decision Making Was pt. sent in by a medical professional or institution (, ALONZO, LEAD LAYING AND GLUING MACHINE OPERATOR, urgent care, hospital, or jail...) When possible be specific @ -No Did you speak to anyone other than the patient for history (EMS, parent, family, police, friend...)? What history was obtained from this source @ -No Did you review nursing and triage notes (agree or disagree)? Why? @ -I reviewed and agree with nursing and triage notes Were old charts reviewed (outside hosp., previous admission, EMS record, old EKG, old radiological studies, urgent care reports/EKG's, jail records)? Report findings @ -No old charts were reviewed Differential Weakness: Hypoglycemia, shock, sepsis, hyponatremia, anemia, infection, IL, ETOH, adverse medicine reaction, overdose, stroke, this is not meant to be an all-inclusive list. EKG interpreted by me (3pts min.). @Sinus rhythm rate of 80, NH interval 154, QRS duration 87, QTc 378 artifact limiting assessment. X-rays interpreted by me (1pt min.). @Chest x-ray shows stable right hilar mass and elevation of the right hemidiaphragm CT interpreted by me (1pt min.). @ -None done U/S interpreted by me (1pt. min.). @ -None done What testing was considered but not performed or refused? (CT, X-rays, U/S, labs)? Why? @ -None What meds were considered but not given or refused? Why? @ -None Did you discuss the management of the patient with other professionals (professionals i.e. ALONZO Garcia, LEAD LAYING AND GLUING MACHINE OPERATOR, lab, RT, psych nurse, social and political studies professor, picture copyist, teacher, administrative officer, casework supervisor)? Give summary @ -No Was smoking cessation discussed for >3mins.? @ -No Was critical care preformed (if so, how long)? @ -No Were there social determinants of health that impacted care today? How? (Homelessness, low income, unemployed, alcoholism, drug addiction, transportation, low edu. Level, literacy, decrease access to med. care, [facility] [facility], rehab)? @ -No Was there de-escalation of care discussed even if they declined (Discuss DNR or withdrawal of care, Hospice)? DNR status @ -No What co-morbidities impacted this encounter? (DM, HTN, Smoking, COPD, CAD, Cancer, CVA, ARF, Chemo, Hep., AIDS, mental health diagnosis, sleep apnea, morbid obesity)? @Metastatic cancer Was patient admitted / discharged? Hospital course, mention meds given and route, prescriptions, significant lab abnormalities, going to OR and other pertinent info. @ -69-year-old male with known metastatic cancer presents with weakness. Patient himself has no complaints otherwise. His vital signs are stable. He is in sinus rhythm with a rate of 80. Chest x-ray is stable without consolidative pneumonia. His laboratory testing is showing anemia, stable hyponatremia mild lactic acid. Patient had been given fluids by relocation coordinator. I did reevaluate the patient he was awake and alert x 4, resting comfortably. Offered observation patient declines, prefers discharge at this time. He will try to maintain oral hydration at home. Undiagnosed new problem with uncertain prognosis? @ -No Drug Therapy requiring intensive monitoring for toxicity (Heparin, Nitro, Insulin, Cardizem)? @ -No Were any procedures done? @ -No Diagnosis/symptom? @Weakness Acute, or Chronic, or Acute on Chronic? @ -Default Uncomplicated (without systemic symptoms) or Complicated (systemic symptoms)? @ -Default Side effects of treatment? @ -No Exacerbation, Progression, or Severe Exacerbation? @ -No Poses a threat to life or bodily function? How? (Chest pain, USA, IL, pneumonia, PE, COPD, DKA, ARF, appy, cholecystitis, CVA, Diverticulitis, Homicidal, Suicidal, threat to staff... and all critical care pts) @ -Yes, metastatic cancer - Lab Data Result diagrams: 03/14/25 15:18 03/14/25 15:18 Lab Results 03/14/25 03/14/25 03/14/25 Range/Units 15:18 15:18 15:18 WBC 7.91 (4.50-10.00) 10*3/uL RBC 3.64 L (4.40-5.60) 10*6/uL Hgb 11.1 L (13.0-17.0) g/dL Hct 32.2 L (39.6-50.0) % MCV 88.5 (80.0-97.0) fL MCH 30.5 (27.0-32.0) pg MCHC 34.5 (32.0-37.0) g/dL Plt Count 188 (140-440) 10*3/uL MPV 8.3 L (9.5-12.2) fL Immature Gran % (Auto) 4.8 % Neutrophils % 63.3 % Lymphocytes % 21.5 % Monocytes % 9.6 % Eosinophils % 0.3 % Basophils % 0.5 % Immature Gran # 0.38 H (0.00-0.04) 10*3/uL Neutrophils # 5.01 (1.80-7.70) 10*3/uL Lymphocytes # 1.70 (0.90-5.00) 10*3/uL Monocytes # 0.76 (0.20-1.00) 10*3/uL Eosinophils # 0.02 L (0.04-0.35) 10*3/uL Basophils # 0.04 (0.00-0.10) 10*3/uL Manual Slide Review Performed Polychromasia Present PT 10.2 (10.0-12.5) sec INR 0.9 (<1.2) APTT 19.2 L (22.0-30.0) sec Sodium 128 L (137-145) mmol/L Potassium 3.9 (3.5-5.1) mmol/L Chloride 96 L (98-107) mmol/L Carbon Dioxide 24 (22-30) mmol/L Anion Gap 8 mmol/L BUN 14 (9-20) mg/dL Creatinine 0.37 L (0.66-1.25) mg/dL Est GFR (CKD-EPI)AfAm >90 (>60 ml/min/1.73 sqM) Est GFR (CKD-EPI)NonAf >90 (>60 ml/min/1.73 sqM) Glucose 112 H (74-99) mg/dL Plasma Lactic Acid Nicola (0.7-2.0) mmol/L Calcium 8.5 (8.4-10.2) mg/dL Magnesium 1.7 (1.6-2.3) mg/dL Total Bilirubin 0.4 (0.2-1.3) mg/dL AST 27 (17-59) U/L ALT 47 (4-49) U/L Alkaline Phosphatase 104 (38-126) U/L Troponin I (0.000-0.034) ng/mL Total Protein 5.8 L (6.3-8.2) g/dL Albumin 3.3 L (3.5-5.0) g/dL Urine Color Urine Appearance (Clear) Urine pH (5.0-8.0) Ur Specific [place] (1.001-1.035) Urine Protein (Negative) Urine Glucose (UA) (Negative) Urine Ketones (Negative) Urine Blood (Negative) Urine Nitrite (Negative) Urine Bilirubin (Negative) Urine Urobilinogen (<2.0) mg/dL Ur Leukocyte Esterase (Negative) 03/14/25 03/14/25 03/14/25 Range/Units 15:18 15:18 15:22 WBC (4.50-10.00) 10*3/uL RBC (4.40-5.60) 10*6/uL Hgb (13.0-17.0) g/dL Hct (39.6-50.0) % MCV (80.0-97.0) fL MCH (27.0-32.0) pg MCHC (32.0-37.0) g/dL Plt Count (140-440) 10*3/uL MPV (9.5-12.2) fL Immature Gran % (Auto) % Neutrophils % % Lymphocytes % % Monocytes % % Eosinophils % % Basophils % % Immature Gran # (0.00-0.04) 10*3/uL Neutrophils # (1.80-7.70) 10*3/uL Lymphocytes # (0.90-5.00) 10*3/uL Monocytes # (0.20-1.00) 10*3/uL Eosinophils # (0.04-0.35) 10*3/uL Basophils # (0.00-0.10) 10*3/uL Manual Slide Review Polychromasia PT (10.0-12.5) sec INR (<1.2) APTT (22.0-30.0) sec Sodium (137-145) mmol/L Potassium (3.5-5.1) mmol/L Chloride (98-107) mmol/L Carbon Dioxide (22-30) mmol/L Anion Gap mmol/L BUN (9-20) mg/dL Creatinine (0.66-1.25) mg/dL Est GFR (CKD-EPI)AfAm (>60 ml/min/1.73 sqM) Est GFR (CKD-EPI)NonAf (>60 ml/min/1.73 sqM) Glucose (74-99) mg/dL Plasma Lactic Acid Nicola 2.2 H* (0.7-2.0) mmol/L Calcium (8.4-10.2) mg/dL Magnesium (1.6-2.3) mg/dL Total Bilirubin (0.2-1.3) mg/dL AST (17-59) U/L ALT (4-49) U/L Alkaline Phosphatase (38-126) U/L Troponin I <0.012 (0.000-0.034) ng/mL Total Protein (6.3-8.2) g/dL Albumin (3.5-5.0) g/dL Urine Color Colorless Urine Appearance Clear (Clear) Urine pH 7.0 (5.0-8.0) Ur Specific [place] 1.012 (1.001-1.035) Urine Protein Negative (Negative) Urine Glucose (UA) Negative (Negative) Urine Ketones Negative (Negative) Urine Blood Negative (Negative) Urine Nitrite Negative (Negative) Urine Bilirubin Negative (Negative) Urine Urobilinogen <2.0 (<2.0) mg/dL Ur Leukocyte Esterase Negative (Negative) Disposition Clinical Impression: Weakness, Metastatic cancer Disposition: HOME SELF-CARE Condition: Fair Instructions (If sedation given, give patient instructions): Weakness (ED) Is patient prescribed a controlled substance at d/c from ED?: No Referrals: Viraj Araujo DO [Primary Care Provider] - 1-2 days Time of Disposition: 16:56
[2025-03-14 15:57] LABS: Partial Thromboplastin Time 19.2 sec (22.0-30.0)
[2025-03-14 16:47] LABS: Polychromasia Present
[2025-03-14 17:11] VITALS: BP 126/61; PULSE 83
== END 2025-03-14 17:18 | disposition home or self-care (01) ==
LOC: EC 14:07
DX: R53.1 Weakness (principal); Z85.118 Personal history of other malignant neoplasm of bronchus and lung; Z87.891 Personal history of nicotine dependence
CPT/HCPCS: 36415; 71046; 80053; 81003; 83605; 83735; 84484; 85025; 85610; 85730; 93005; 99285

== ENCOUNTER 2025-03-17 14:51 | Emergency (ER) | payer MEDICARE ==
[2025-03-17 14:56] VITALS: BP 101/72; PULSE 134; TEMP 96.2
[2025-03-17] MEDS ORDERED: LACTATED RINGERS 1,000 ML IV ONE (15:00)
[2025-03-17] MEDS ORDERED: cefTRIAXone IN SWFI 1,000 MG/10 ML SYRINGE IVP STA (15:01)
[2025-03-17 15:04] VITALS: RESP 34
--- NOTE | 2025-03-17 15:27 | ED ---
General Adult HPI - General Chief complaint: Shortness of Breath Stated complaint: Cardiac Arrest Time Seen by Provider: 03/17/25 14:51 Source: patient, RN notes reviewed, old records reviewed Mode of arrival: EMS Limitations: no limitations - History of Present Illness Initial comments: This is a 69-year-old male who was at home when he was having difficulty breathing EMS was called and they arrived patient was having hard time breathing and he bradycardia and they started to bag the patient. Patient had pulses and at 1 point for short duration he lost pulses and they started CPR and he was given 1 dose of epi he became alert and oriented but complained of difficulty breathing. On arrival patient indicated to us he did not want to be put on a ventilator he was asked multiple times in front of 12 people and he absolutely did not want to be put on the ventilator. I asked the patient about CPR and he did not want CPR. Patient stated he would sign papers or he already had signed papers it was unclear at that time. But he was adamant that he did not want to be intubated or have CPR performed. Patient denied any area of pain. Patient w as alert and oriented x 3 when I was asking about his CODE STATUS. Patient has a history of lung cancer and metastatic disease to the brain and he has had radiation And had a strong drinking history per EMS - Related Data Previous Rx's Medication Instructions Recorded Pantoprazole [Protonix] 40 mg PO AC-BRKFST #30 tab 02/09/25 dexAMETHasone [Decadron] See Taper PO Q6HR #240 tablet 02/09/25 levETIRAcetam [Keppra] 500 mg PO Q12HR #60 tab 02/09/25 NIFEdipine XL [Procardia XL] 60 mg PO DAILY #30 tab 02/10/25 Allergies Allergy/AdvReac Type Severity Reaction Status Date / Time No Known Allergies Allergy Verified 03/17/25 14:56 Review of Systems ROS Statement: Those systems with pertinent positive or pertinent negative responses have been documented in the HPI. ROS Other: All systems not noted in ROS Statement are negative. Past Medical History Past Medical History: Coronary Artery Disease (CAD), Cancer Additional Past Medical History / Comment(s): Hx lung CA and brain tumor recently under went Stereotactic body radiation x5 treatments. History of Any Multi-Drug Resistant Organisms: None Reported Past Surgical History: No Surgical Hx Reported Past Anesthesia/Blood Transfusion Reactions: No Reported Reaction Past Psychological History: No Psychological Hx Reported Smoking Status: Former smoker Past Alcohol Use History: Rare Past Drug Use History: Marijuana - Past Family History Father Family Medical History: Cancer (esophageal ) Additional Family Medical History / Comment(s): Esophageal cancer/bone cancer General Exam - General Exam Comments Initial Comments: GENERAL: Patient is well-developed and well-nourished. Patient is nontoxic and well- hydrated and is in moderate distress. ENT: Neck is soft and supple. No significant lymphadenopathy is noted. Oropharynx is clear. Moist mucous membranes. Neck has full range of motion without eliciting any pain. EYES: The sclera were anicteric and conjunctiva were pink and moist. Extraocular movements were intact and pupils were equal round and reactive to light. Eyelids were unremarkable. PULMONARY: Patient is having a hard time breathing but he is moving air I hear no crackles or wheezing CARDIOVASCULAR: There is a regular rate and rhythm without any murmurs gallops or rubs. ABDOMEN: Soft and nontender with normal bowel sounds. SKIN: Skin is clear with no lesions or rashes and otherwise unremarkable. NEUROLOGIC: Patient is alert and oriented x3. Cranial nerves II through XII are grossly intact. Motor and sensory are also intact. Normal speech, volume and content. Symmetrical smile. MUSCULOSKELETAL: Normal extremities with adequate strength and full range of motion. LYMPHATICS: No significant lymphadenopathy is noted PSYCHIATRIC: Patient was very anxious Limitations: no limitations Course Vital Signs 03/17/25 03/17/25 03/17/25 14:53 14:55 15:05 Temperature 96.2 F L Pulse Rate 134 H Respiratory 24 34 H Rate Blood Pressure 101/72 O2 Sat by Pulse 82 L Oximetry Fraction of 95 Inspired Oxygen (FIO2) Medical Decision Making - Medical Decision Making EKG was interpreted by myself. EKG showed sinus tachycardia 131 bpm NM 137 QRS 124 QT interval 308 QTc is 385. Patient EKG showed no significant ST segment elevations Was pt. sent in by a medical professional or institution (, PA, [facility], urgent care, hospital, or snf...) When possible be specific @ -No Did you speak to anyone other than the patient for history (EMS, parent, family, police, friend...)? What history was obtained from this source @ -No Did you review nursing and triage notes (agree or disagree)? Why? @ -I reviewed and agree with nursing and triage notes Were old charts reviewed (outside hosp., previous admission, EMS record, old EKG, old radiological studies, urgent care reports/EKG's, snf records)? Report findings @ -No old charts were reviewed Differential Diagnosis? @ -Differential Dyspnea: Coronary syndrome, arrhythmia, tamponade, asthma, COPD, pulmonary embolism, pneumonia, pneumothorax, pulmonary effusion, anaphylaxis, diabetic ketoacidosis, flailed chest, pulmonary contusion, diaphragmatic rupture, anemia, neuromuscular, this is not meant to be an all-inclusive list. EKG interpreted by me (3pts min.). @ -As above X-rays interpreted by me (1pt min.). @ -None done CT interpreted by me (1pt min.). @ -None done U/S interpreted by me (1pt. min.). @ -None done What testing was considered but not performed or refused? (CT, X-rays, U/S, labs)? Why? @ -None What meds were considered but not given or refused? Why? @ -None Did you discuss the management of the patient with other professionals (professionals i.e. , PA, [facility], lab, RT, psych nurse, nursing home social worker, gore cutter, teacher, sanitation officer, special education case manager)? Give summary @ -No Was smoking cessation discussed for >3mins.? @ -No Was critical care preformed (if so, how long)? @ -35 minutes Were there social determinants of health that impacted care today? How? (Homelessness, low income, unemployed, alcoholism, drug addiction, transportation, low edu. Level, literacy, decrease access to med. care, shelter, re hab)? @ -No Was there de-escalation of care discussed even if they declined (Discuss DNR or withdrawal of care, Hospice)? DNR status @ -No What co-morbidities impacted this encounter? (DM, HTN, Smoking, COPD, CAD, Cancer, CVA, ARF, Chemo, Hep., AIDS, mental health diagnosis, sleep apnea, morbid obesity)? @ -None Was patient admitted / discharged? Hospital course, mention meds given and route, prescriptions, significant lab abnormalities, going to OR and other pertinent info. @ -Patient was placed on high flow oxygen because he did not want to be intubated. After short period time the patient's heart rate went down he was given atropine and eventually lost pulses he was then given 1 amp of epinephrine and his heart rate came back up he had a pulse but shortly thereafter he bradycardia down and went asystole. Patient made his wishes known to the staff that he did not want to be intubated or have CPR performed so at this point in time no more efforts were made and the patient was pronounced at 3:13 PM. I spoke with family. Undiagnosed new problem with uncertain prognosis? @ -No Drug Therapy requiring intensive monitoring for toxicity (Heparin, Nitro, Insulin, Cardizem)? @ -No Were any procedures done? @ -No Diagnosis/symptom? @ -Respiratory arrest Acute, or Chronic, or Acute on Chronic? @ -Acute Uncomplicated (without systemic symptoms) or Complicated (systemic symptoms)? @ -Complicated Side effects of treatment? @ -No Exacerbation, Progression, or Severe Exacerbation? @ -No Poses a threat to life or bodily function? How? (Chest pain, USA, CT, pneumonia, PE, COPD, DKA, ARF, appy, cholecystitis, CVA, Diverticulitis, Homicidal, Suicidal, threat to staff... and all critical care pts) @ -Yes this did cause his Disposition Clinical Impression: Respiratory arrest Disposition: Referrals: Viraj Araujo DO [Primary Care Provider] - 1-2 days Time of Disposition: 15:27 Preliminary Cause of : Respiratory failure
== END 2025-03-17 16:28 | disposition expired ==
LOC: EC 14:51
DX: R09.2 Respiratory arrest (principal); Z87.891 Personal history of nicotine dependence
CPT/HCPCS: 99284